=== PATIENT | male | born 1945 | race Caucasian/White ===

== ENCOUNTER 2019-12-21 07:40 | Emergency (ER) | payer OTHER, SELFPAY ==
[2019-12-21 07:55] VITALS: BP 176/80; PULSE 73; RESP 14; TEMP 36.4; O2SAT 98; BMI 24.3
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
[2019-12-21] MEDS: cephALEXin 500 MG CAPSULE PO (09:23)
== END 2019-12-21 09:52 | disposition home or self-care (01) ==
PROVIDERS: Emergency Provider Emergency Medicine
DX: L01.00 Impetigo, unspecified (principal); L03.116 Cellulitis of left lower limb; L03.115 Cellulitis of right lower limb; S80.812A Abrasion, left lower leg, initial encounter; S80.811A Abrasion, right lower leg, initial encounter; I10 Essential (primary) hypertension; Z79.899 Other long term (current) drug therapy; Z23 Encounter for immunization; Y33.XXXA Other specified events, undetermined intent, initial encounter; Y93.55 Activity, bike riding; Y92.410 Unspecified street and highway as the place of occurrence of the external cause; Y99.9 Unspecified external cause status
CPT/HCPCS: 90471; 90715; 99282; 99284

== ENCOUNTER 2020-08-21 11:16 | Emergency (ER) | payer MEDICARE, SELFPAY ==
--- NOTE | ~2020-08-21 | XR_ITS ---
EXAMINATION: XR KNEE, RIGHT CLINICAL INFORMATION: Pain swelling COMPARISON: None TECHNIQUE: Four views of the right knee. FINDINGS: No effusion. Mild soft tissue prominence in the anterior subcutaneous soft tissues compatible edema. Minimal osteoarthritis manifested by small marginal osteophytes about the patellofemoral compartment as well as the medial lateral compartments involving the tibial spines. No joint space narrowing. Small area of ossification adjacent to the medial femoral condyle compatible with old medial collateral ligament tear. Arterial calcification XR/XR knee RT 4V IMPRESSION: Mild degenerative changes. Suspect soft tissue swelling tissues perhaps involving the prepatellar bursa
[2020-08-21 11:28] VITALS: BP 101/58; PULSE 56; RESP 18; TEMP 36.1; O2SAT 96; BMI 28.1
[2020-08-21 12:55] LABS: MANUAL DIFF FLAG NO
[2020-08-21 12:58] LABS: Basophils Absolute Auto 0.1 X10*3/uL (0.0-0.2); Basophils Percent Auto 0.5 % (0-2); Eosinophils Absolute Auto 0.1 X10*3/uL (0.0-0.4); Eosinophils Percent Auto 0.9 % (0-4); Hematocrit 41.6 % (42-52); Hemoglobin 14.1 g/dl (14.0-18.0); Imm Gran Abs Auto 0.05 X10*3/uL (0.00-0.03); Imm Gran Pct Auto 0.4 % (0.0-0.4); Lymphocytes Absolute Auto 1.1 X10*3/uL (1.2-4.9); Lymphocytes Percent Auto 8.9 % (20-40); Mean Corpuscular HGB Conc 33.9 g/dl (31.0-36.0); Mean Corpuscular Volume 91.4 fL (80-98); Mean Platelet Volume 10.6 fL (9.4-12.4); Monocytes Percent Auto 7.9 % (2-11); Neutrophils Percent Auto 81.4 % (45-73); Platelet Count 218 X10*3/uL (160-400); Red Blood Count 4.55 X10*6/uL (4.60-5.80); Red Cell Distribution Width 12.4 % (11.0-16.0); White Blood Count 12.3 X10*3/uL (4.8-10.8)
[2020-08-21 13:13] LABS: Lithium 1.81 mmol/L (0.60-1.20)
[2020-08-21 13:19] LABS: Alanine Aminotransferase 32 U/L (0-40); Albumin Level 4.5 g/dL (3.5-5.0); Alkaline Phosphatase 122 U/L (39-117); Anion Gap 12 (12-20); Aspartate Amino Transferase 27 U/L (5-37); Bilirubin Total 1.1 mg/dL (0.0-1.0); Blood Urea Nitrogen 37 mg/dL (9-16); C Reactive Protein 4.76 mg/dL (< or = 0.50); Calcium 10.3 mg/dL (8.4-10.2); Carbon Dioxide 22 mmol/L (22-29); Chloride 108 mmol/L (96-108); Creatinine Clr Calc Pharmacy 37.9; Estimated Glomerular Filt Rate 37; Glucose Random 124 mg/dL (60-115); Magnesium 2.4 mg/dL (1.6-2.6); Potassium 4.2 mmol/L (3.3-5.1); Sodium 138 mmol/L (135-145); Total Protein 7.4 g/dL (6.5-8.0)
[2020-08-21 13:39] LABS: TSH reflex Free T4 3.95 uIU/mL (0.32-4.0)
[2020-08-21 13:57] LABS: Erythrocyte Sedimentation Rate 12 MM/HR (0-15)
--- NOTE | 2020-08-21 14:11 | PC.NURSE ---
PT WITNESSED BY THIS RN AMBULATING OUT OF ED WITH EVEN STEADY GAIT, PT DID NOT INFORM STAFF HE WAS LEAVING, NOT PRESENT IN FRONT OF ED WHEN THIS RN WENT TO ADVISE PATIENT MORE CARE WAS ORDERED BY PROVIDER.
--- NOTE | 2020-08-21 14:13 | ED.EXTPRO ---
HPI - Extremity Problem General Chief complaint: Extremity Injury, Lower Stated complaint: knee pain Time Seen by Provider: 08/21/20 12:10 Source: patient Mode of arrival: ambulatory Limitations: no limitations History of Present Illness HPI Narrative: 75-year-old male who is currently residing at [facility] with a past medical history of skin cancer of the face and bipolar 1 disorder presenting to the ED with complaints of atraumatic right knee pain /swelling for the past 3 weeks worse today. He denies any fevers, chills, history of IV drug use, history of MRSA, any injury or falls, history of gout, recent surgery or procedure, recent travel or immobilization or illness, history of DVT or PE or any other symptoms complaints or concerns at this time. Patient had an outpatient lab slip for a complete metabolic panel, CBC, TSH level in a lithium level therefore explained to the patient due to his erythema/swelling and pain to the right knee I was going to obtain blood work therefore I would obtain the blood work that he needed and he agreed with this. MD Complaint: extremity pain and extremity swelling Onset (ago): week(s) ( 3 weeks) Pain Consistency: constant Location: right and knee Quality: aching Radiation: none Relieving factors: rest Exacerbating factors: walking Associated symptoms: denies other symptoms Related Data Previous Rx's Medication Instructions Recorded cephalexin [Keflex] 500 mg PO Q6H 10 Days #40 cap 12/21/19 doxycycline monohydrate 100 mg PO BID 10 Days #20 cap 12/21/19 mupirocin 1 applic TOPICAL TID #22 g 12/21/19 cephalexin 500 mg PO BID 10 Days #20 cap 08/21/20 doxycycline monohydrate 100 mg PO BID 10 Days #20 cap 08/21/20 Allergies Allergy/AdvReac Type Severity Reaction Status Date / Time No Known Allergies Allergy Unknown Unverified 11/03/19 15:08 Review of Systems Review of Systems: Constitutional : No changes in activity, No lethargy, No recent prior head injury, No agitation, No increased fussiness ENT/Mouth : No Ear Pain, No Nasal discharge/drainage Eyes: No Eye Pain, No Swelling, No Redness, No Foreign Body, No Vision Changes Cardiovascular : No Chest Pain, No SOB Respiratory : No Cough Gastrointestinal : No Nausea, No Vomiting, No abdominal Pain Genitourinary : No Dysuria, No Urinary Frequency, No Urinary Incontinence, No Urgency, No Flank Pain Musculoskeletal : + joint pain, No neck stiffness, No back pain/injury Skin : No lacerations Neuro : No unsteady gait, No Paresthesias, No Loss of Consciousness, No altered mental status, No Headache Yes all other systems are reviewed and are negative [facility] Past Medical History Attestation statement: The following information was validated with the patient. Medical History Bipolar 1 disorder Skin cancer of face Social History Social History Advance Directives: No Advance Directives Information Provided: No Physical Exam Vital Signs: Vital Signs: Last Vital Signs Temp 97 F 08/21/20 11:28 Pulse 56 08/21/20 11:28 Resp 18 08/21/20 11:28 BP 101/58 L 08/21/20 11:28 Pulse Ox 96 08/21/20 11:28 Body Mass Index 28.1 vital signs have been reviewed as normal and appeared to be correct. Blood pressure normal. Heart rate normal. Respiration rate normal. Temperature normal. Oxygen saturation normal. Appearance: Alert. Oriented X3. No acute distress. Head: Normal external exam. Normocephalic. Atraumatic. Eyes: PERRLA. EOMI. Conjunctiva and sclera normal. Eyelids normal. ENT: Pharynx normal. Uvula midline. Moist mucous membranes. No trismus noted. No drooling noted. No muffled voice noted. Neck: Normal inspection. Neck supple. FROM. No adenopathy. Thyroid Normal. No meningeal signs. No neck mass noted. CVS: Normal heart rate and rhythm. Heart sound normal. Pulses normal throughout. No murmurs/rales/gallops. Respiratory: No respiratory distress. Painless inspiration. Breath sounds normal. No wheezes/rales/rhonchi noted. Chest nontender. No accessory muscle usage noted or decreased air movement noted. Abdomen: Soft and nontender. Bowel sounds normal in all 4 quadrants. No distention noted. No organomegaly noted. No visible injury noted. Back: Full range of motion noted. No rashes/lesion/induration/fluctuance or signs of infection noted. Skin: Skin warm and dry. Normal skin color. Normal skin turgor. No rashes/lesions/lacerations noted. Extremities: Patient mild soft tissue swelling to right knee at the patellar aspect with erythema/ warmth to touch although patient has full range of motion of the right knee not consistent with septic joint. No ligamentous laxity noted to the right knee. Otherwise No lower extremity edema. no calf tenderness is noted. Otherwise Extremities exhibit normal range of motion and nontender. Neuro: Oriented X 3. No motor deficit. No sensory deficit. Reflexes normal. Normal steady gait. No focal neuro deficits noted. Vascular: + radial pulses/+ 2 distal pedal pulses/+2 dorsalis pedis b/l. Normal cap refill. No cyanosis noted to upper extremity nails and lower extremity toes nails. Course Course Course Narrative: 75-year-old male presenting to the ED with atraumatic right knee pain /swelling /redness for the past 3 weeks worse today. Denies history of IV drug use and no history of DVT or PE. On exam patient appears to have a cellulitic infection not consistent with septic joint as patient has full range of motion. X-ray reveal soft tissue swelling and bursitis otherwise no other acute processes. Therefore I explained to the patient due to his erythema to the right knee I would obtain blood work and due to he already had an outpatient slip for blood work I offered to do a CBC/CMP/ TSH level and lithium. Labs were obtained although when labs return it [place] [address]. BUN creatinine 37/1.80. Random glucose 124. Calcium 10.3. Total bilirubin 1.1. Alkaline phosphate 122. CRP was 4.76. lithium 1.80. Lyme titer is pending. Otherwise all other labs are within normal limits including TSH level. Therefore I ordered 2 L of IV fluids and anticipated to admit the patient although when I went back into the room to explain this to the patient he was no longer in the room we waited approximately 15-30 minutes and we cannot find him and the nurse cannot find him I tried to call the number on the outpatient slip that he provided at and I unable to get in contact with the provider to order the outpatient labs. If patient returns patient should receive 2 L of IV fluids and should be admitted for SUMANTH with elevated lithium level And cellulitis of the right knee. MDM - Extremity (Nontraumatic) Medical Records Attestation: I reviewed the patient's medical records. Lab Data Attestation: I reviewed the patient's lab results. Result diagrams: 08/21/20 12:49 08/21/20 12:49 Labs: Lab Results 08/21/20 08/21/20 08/21/20 Range/Units 12:48 12:49 12:49 WBC 12.3 H (4.8-10.8) X10*3/uL RBC 4.55 L (4.60-5.80) X10*6/uL Hgb 14.1 (14.0-18.0) g/dl Hct 41.6 L (42-52) % MCV 91.4 (80-98) fL MCH 31.0 (27.0-33.0) pg MCHC 33.9 (31.0-36.0) g/dl RDW 12.4 (11.0-16.0) % Plt Count 218 (160-400) X10*3/uL MPV 10.6 (9.4-12.4) fL Immature Gran % (Auto) 0.4 (0.0-0.4) % Neut % (Auto) 81.4 H (45-73) % Lymph % (Auto) 8.9 L (20-40) % [place] % (Auto) 7.9 (2-11) % Eos % (Auto) 0.9 (0-4) % Baso % (Auto) 0.5 (0-2) % Lymph # (Auto) 1.1 L (1.2-4.9) X10*3/uL [place] # (Auto) 1.0 (0.1-1.2) X10*3/uL Eos # (Auto) 0.1 (0.0-0.4) X10*3/uL Baso # (Auto) 0.1 (0.0-0.2) X10*3/uL Abs Immat Gran (auto) 0.05 H (0.00-0.03) X10*3/uL Absolute Neuts (auto) 10.0 H (2.0-8.3) X10*3/uL Absolute Nucleated RBC 0.000 (0.0-0.012) X10*3/uL Nucleated RBC % (auto) 0.0 (0.0-0.2) /100WBC ESR 12 (0-15) MM/HR Sodium (135-145) mmol/L Potassium (3.3-5.1) mmol/L Chloride (96-108) mmol/L Carbon Dioxide (22-29) mmol/L Anion Gap (12-20) BUN (9-16) mg/dL Creatinine (0.5-1.4) mg/dL Estim Creat Clear Calc Estimated GFR Random Glucose (60-115) mg/dL Calcium (8.4-10.2) mg/dL Magnesium (1.6-2.6) mg/dL Total Bilirubin (0.0-1.0) mg/dL AST (5-37) U/L ALT (0-40) U/L Alkaline Phosphatase (39-117) U/L C-Reactive Protein (< or = 0.50) mg/dL Total Protein (6.5-8.0) g/dL Albumin (3.5-5.0) g/dL TSH (0.32-4.0) uIU/mL [place] 1.81 H* (0.60-1.20) mmol/L 08/21/20 08/21/20 Range/Units 12:49 12:49 WBC (4.8-10.8) X10*3/uL RBC (4.60-5.80) X10*6/uL Hgb (14.0-18.0) g/dl Hct (42-52) % MCV (80-98) fL MCH (27.0-33.0) pg MCHC (31.0-36.0) g/dl RDW (11.0-16.0) % Plt Count (160-400) X10*3/uL MPV (9.4-12.4) fL Immature Gran % (Auto) (0.0-0.4) % Neut % (Auto) (45-73) % Lymph % (Auto) (20-40) % [place] % (Auto) (2-11) % Eos % (Auto) (0-4) % Baso % (Auto) (0-2) % Lymph # (Auto) (1.2-4.9) X10*3/uL [place] # (Auto) (0.1-1.2) X10*3/uL Eos # (Auto) (0.0-0.4) X10*3/uL Baso # (Auto) (0.0-0.2) X10*3/uL Abs Immat Gran (auto) (0.00-0.03) X10*3/uL Absolute Neuts (auto) (2.0-8.3) X10*3/uL Absolute Nucleated RBC (0.0-0.012) X10*3/uL Nucleated RBC % (auto) (0.0-0.2) /100WBC ESR (0-15) MM/HR Sodium 138 (135-145) mmol/L Potassium 4.2 (3.3-5.1) mmol/L Chloride 108 (96-108) mmol/L Carbon Dioxide 22 (22-29) mmol/L Anion Gap 12 (12-20) BUN 37 H (9-16) mg/dL Creatinine 1.80 H (0.5-1.4) mg/dL Estim Creat Clear Calc 37.9 Estimated GFR 37 Random Glucose 124 H (60-115) mg/dL Calcium 10.3 H (8.4-10.2) mg/dL Magnesium 2.4 (1.6-2.6) mg/dL Total Bilirubin 1.1 H (0.0-1.0) mg/dL AST 27 (5-37) U/L ALT 32 (0-40) U/L Alkaline Phosphatase 122 H (39-117) U/L C-Reactive Protein 4.76 H (< or = 0.50) mg/dL Total Protein 7.4 (6.5-8.0) g/dL Albumin 4.5 (3.5-5.0) g/dL TSH 3.95 (0.32-4.0) uIU/mL [place] (0.60-1.20) mmol/L Imaging Data Right knee x-ray: Attestation: I personally reviewed and interpreted this imaging study as follows: Radiologist's impression: FINDINGS: No effusion. Mild soft tissue prominence in the anterior subcutaneous soft tissues compatible edema. Minimal osteoarthritis manifested by small marginal osteophytes about the patellofemoral compartment as well as the medial lateral compartments involving the tibial spines. No joint space narrowing. Small area of ossification adjacent to the medial femoral condyle compatible with old medial collateral ligament tear. Arterial calcification XR/XR knee RT 4V IMPRESSION: Mild degenerative changes. Suspect soft tissue swelling tissues perhaps involving the prepatellar bursa Discharge Plan Discharge Clinical Impression: Cellulitis of knee, right, Elevated lithium level, SUMANTH (acute kidney injury) Patient Disposition: Elopement Prescriptions: New doxycycline monohydrate 100 mg capsule 100 mg PO BID 10 Days Qty: 20 RF: 0 cephalexin 500 mg capsule 500 mg PO BID 10 Days Qty: 20 RF: 0 No Action doxycycline monohydrate 100 mg capsule 100 mg PO BID 10 Days Qty: 20 RF: 0 cephalexin [Keflex] 500 mg capsule 500 mg PO Q6H 10 Days Qty: 40 RF: 0 mupirocin 2 % ointment 1 applic topical TID Qty: 22 RF: 0 Referrals: Physician,Unknown [Primary Care Provider] - 2 days (your pcp) Discharge Date/Time: 08/21/20 14:12
[2020-08-22 17:01] LABS: Lyme Abs Screen <0.90 index
== END 2020-08-21 14:12 | disposition left against medical advice (07) ==
PROVIDERS: Physician Assistant Medical; Emergency Provider Emergency Medicine
DX: L03.115 Cellulitis of right lower limb (principal); R78.89 Finding of other specified substances, not normally found in blood; N17.9 Acute kidney failure, unspecified; M25.561 Pain in right knee; R22.41 Localized swelling, mass and lump, right lower limb
CPT/HCPCS: 36415; 73564; 80053; 80178; 83735; 84443; 85025; 85652; 86140; 86617; 86618; 96360; 99282; 99283; 99284

== ENCOUNTER 2020-08-23 13:50 | Inpatient (IN) | payer MEDICARE, SELFPAY ==
[2020-08-23] VITALS (8 sets, daily range): BP systolic 116–152; BP diastolic 62–80; PULSE 56–68; RESP 13–18; TEMP 36.2–37; O2SAT 98; BMI 28.1
--- NOTE | 2020-08-23 16:24 | ED_ITS ---
HPI - General Adult General Chief complaint: General Medical Stated complaint: General Medical Time Seen by Provider: 08/23/20 15:25 Source: patient Mode of arrival: ambulatory Limitations: no limitations History of Present Illness HPI narrative: 75-year-old male who presents emergency department for evaluation right knee pain. He states he has had right knee pain for approximately 4 days, the pain came on gradually, he states that his knee was swollen and red and it has improved. The patient does have a history of bipolar disorder and is on lithium. He was seen here yesterday in the emergency department with similar complaint, had blood work which revealed acute kidney injury and elevated lithium level. The provider that treated in yesterday tried to contact his family and the facility that he was at to get him to come back to emergency department. The patient was sent to emergency department today from his hospice facility for evaluation. The patient denied fever, chills, chest pain, shortness of breath and fatigue. He states that he is having pain in his right knee. He describes the pain as a constant, dull ache which is moderate intensity is worse with movement and with walking. He states he did take his lithium this morning. Related Data Home Medications Medication Instructions Recorded Confirmed ascorbic acid (vitamin C) [Vitamin 08/23/20 C] aspirin 81 mg PO DAILY 08/23/20 08/23/20 ferrous sulfate 325 mg PO DAILY 08/23/20 08/23/20 lisinopril-hydrochlorothiazide 1 tab PO DAILY 08/23/20 08/23/20 lithium carbonate 1 cap PO BEDTIME 08/23/20 08/23/20 lithium carbonate 1 tab PO BEDTIME 08/23/20 08/23/20 magnesium hydroxide [Milk of 08/23/20 08/23/20 Magnesia] multivitamin,qy-[id number]-Ls-FA-min tab 08/23/20 [Multivitamin And Mineral] olanzapine 1 tab PO BEDTIME 08/23/20 08/23/20 Previous Rx's Medication Instructions Recorded cephalexin [Keflex] 500 mg PO Q6H 10 Days #40 cap 12/21/19 doxycycline monohydrate 100 mg PO BID 10 Days #20 cap 12/21/19 mupirocin 1 applic TOPICAL TID #22 g 12/21/19 cephalexin 500 mg PO BID 10 Days #20 cap 08/21/20 doxycycline monohydrate 100 mg PO BID 10 Days #20 cap 08/21/20 Allergies Allergy/AdvReac Type Severity Reaction Status Date / Time No Known Allergies Allergy Unknown Unverified 11/03/19 15:08 Review of Systems Review of Systems: Yes Unobtainable due to mental status [facility] Past Medical History [facility] Narrative: social history: The patient currently is living in a hospice. He denies tobacco, alcohol and drug use. Medical History Bipolar 1 disorder Skin cancer of face Social History Social History Alcohol intake: never Patient Tobacco Use Status: Never used Tobacco Use of substances other than those prescribed or required for medical reasons: No Advance Directives: No Advance Directives Information Provided: Yes Physical Exam Vital Signs: Vital Signs: Last Vital Signs Temp 98.5 F 08/23/20 18:57 Pulse 66 08/23/20 18:57 Resp 18 08/23/20 18:57 BP 139/65 08/23/20 18:57 Pulse Ox 98 08/23/20 18:57 Body Mass Index 28.1 Const: General: cooperative and healthy appearing Orientation/consciousness: oriented to person and oriented to place Limitations: no limitations HENMT: Head: Yes normal to inspection, Yes normocephalic and Yes atraumatic Ears: external ears normal General nose exam: Normal external nose present Face and sinus: Yes normal facial exam Mouth: Normal oral and palatal mucosa present Throat: Yes posterior oropharynx normal Eyes: Periorbital: periorbital findings normal Eyelids: Yes eyelids normal Conjunctivae: conjunctivae normal Sclerae: sclerae normal Corneas: corneas normal Pupils: Equal, round and reactive pupils present Direct Ophthalmoscopy: normal light reflex Neck: Neck: Yes full ROM, Yes no lymphadenopathy, Yes no meningeal signs, Yes trachea midline and Yes supple Chest: Chest palpation & inspection: normal inspection of the chest and normal palpation of entire chest wall Resp: Effort & Inspection: normal respiratory effort and able to speak in complete sentences Auscultation: clear to auscultation bilaterally Cardio: Rate: regular rate Rhythm: regular rhythm Heart sounds: S1 normal heart sound present, S2 normal heart sound present and no murmurs GI: Inspection: Yes normal to inspection Palpation (GI): Soft to palpation, nontender, no guarding, not rigid and No hepatosplenomegaly present : General: Yes no CVA tenderness Back/Spine/Pelvis: Back: no CVA tenderness Cervical Spine: normal cervical lordosis Thoracic/Lumbar Spine: thoracic and lumbar spine normal to inspection Skin: Lesions: no lesions Rashes: no rashes Wounds: no wounds Neuro: General: oriented to person, oriented to place and no meningeal signs Cranial nerves: Yes CN's II-XII intact bilaterally and Yes Equal, round and reactive pupils present Cognition (Neuro): normal cognition Motor exam (neuro): 5/5 motor strength present throughout Extrem: Other: The patient's right knee is slightly erythematous and warm to the touch compared to the left, there is no joint effusion, the patient has full range of motion. Compared to images from yesterday, the knee appears to be improved with less erythema, and less soft tissue swelling General: Yes full ROM Psych: Appearance: well kempt Mental Status: mental status grossly normal Speech and movement: Normal speech and movement present Affect: normal affect Attitude: cooperative Thought process: Normal thought process present Thought content: Normal thought content present Course Course Course Narrative: 75-year-old male with history of bipolar disorder who presents emergency department for evaluation of right knee pain x4 days, he was evaluated in the emergency department yesterday and was found to have a high lithium level with an elevated creatinine and he left the emergency department prior to disposition. He was sent back to the emergency department today for re-evaluation. The patient's right knee is erythematous and there is soft tissue swelling with no obvious joint effusion, compared to the images from yesterday, the erythema and soft tissue swelling seems to improved. I will repeat a laboratory evaluation on this patient to include CBC, CMP, PT/INR PTT, CK and lithium level. He was ordered to get normal saline IV x3 L. 180: The patient's laboratory evaluation did reveal an increase in his BUN and creatinine to 53 and 2.31 compared to 37 and 1.8 yesterday. [place] level was also higher at 2.05 compared to 1.8 yesterday. I did discuss the patient's presentation with the covering woodworking machine operator, Dr. Vo who recommended the patient be admitted, hydrated with isotonic saline and repeat labs in the [facility]. I will discuss the patient's presentation with the covering hospitalist. 1921: I did discuss the patient's presentation with the covering hospitalist, who accepted the patient on the hospitalist service,. I will obtain an EKG and the patient will be [place] [facility] Medical Decision Making Lab Data Result diagrams: 08/23/20 16:30 08/23/20 16:30 Labs: Lab Results 08/23/20 08/23/20 08/23/20 Range/Units 16:30 16:30 16:30 WBC 12.1 H (4.8-10.8) X10*3/uL RBC 4.36 L (4.60-5.80) X10*6/uL Hgb 13.7 L (14.0-18.0) g/dl Hct 41.1 L (42-52) % MCV 94.3 (80-98) fL MCH 31.4 (27.0-33.0) pg MCHC 33.3 (31.0-36.0) g/dl RDW 12.6 (11.0-16.0) % Plt Count 227 (160-400) X10*3/uL MPV 10.9 (9.4-12.4) fL Immature Gran % (Auto) 0.5 H (0.0-0.4) % Neut % (Auto) 84.6 H (45-73) % Lymph % (Auto) 6.5 L (20-40) % [place] % (Auto) 6.8 (2-11) % Eos % (Auto) 1.2 (0-4) % Baso % (Auto) 0.4 (0-2) % Lymph # (Auto) 0.8 L (1.2-4.9) X10*3/uL [place] # (Auto) 0.8 (0.1-1.2) X10*3/uL Eos # (Auto) 0.2 (0.0-0.4) X10*3/uL Baso # (Auto) 0.1 (0.0-0.2) X10*3/uL Abs Immat Gran (auto) 0.06 H (0.00-0.03) X10*3/uL Absolute Neuts (auto) 10.2 H (2.0-8.3) X10*3/uL Absolute Nucleated RBC 0.000 (0.0-0.012) X10*3/uL Nucleated RBC % (auto) 0.0 (0.0-0.2) /100WBC PT 12.6 (9.9-13.0) SEC INR 1.1 (0.9-1.1) APTT 34.2 (24.1-38.0) SEC Sodium 138 (135-145) mmol/L Potassium 4.3 (3.3-5.1) mmol/L Chloride 107 (96-108) mmol/L Carbon Dioxide 24 (22-29) mmol/L Anion Gap 11 L (12-20) BUN 53 H (9-16) mg/dL Creatinine 2.31 H (0.5-1.4) mg/dL Estim Creat Clear Calc 29.6 Estimated GFR 28 Random Glucose 97 (60-115) mg/dL Lactic Acid (0.5-2.0) mmol/L Calcium 10.0 (8.4-10.2) mg/dL Total Bilirubin 0.4 (0.0-1.0) mg/dL AST 39 H D (5-37) U/L ALT 48 H (0-40) U/L Alkaline Phosphatase 128 H (39-117) U/L Total Creatine Kinase (38-174) U/L Total Protein 7.3 (6.5-8.0) g/dL Albumin 4.4 (3.5-5.0) g/dL Lipase 62 (8-78) U/L Urine Color Urine Appearance Urine pH (5.0-8.0) Ur Specific [place] (1.005-1.025) Urine Protein (NEG-TRACE) MG/DL Urine Glucose (UA) (NEG) MG/DL Urine Ketones (NEG) MG/DL Urine Blood (NEG) Urine Nitrite (NEG) Ur Leukocyte Esterase (NEG) [place] (0.60-1.20) mmol/L 08/23/20 08/23/20 08/23/20 Range/Units 16:30 16:30 16:30 WBC (4.8-10.8) X10*3/uL RBC (4.60-5.80) X10*6/uL Hgb (14.0-18.0) g/dl Hct (42-52) % MCV (80-98) fL MCH (27.0-33.0) pg MCHC (31.0-36.0) g/dl RDW (11.0-16.0) % Plt Count (160-400) X10*3/uL MPV (9.4-12.4) fL Immature Gran % (Auto) (0.0-0.4) % Neut % (Auto) (45-73) % Lymph % (Auto) (20-40) % [place] % (Auto) (2-11) % Eos % (Auto) (0-4) % Baso % (Auto) (0-2) % Lymph # (Auto) (1.2-4.9) X10*3/uL [place] # (Auto) (0.1-1.2) X10*3/uL Eos # (Auto) (0.0-0.4) X10*3/uL Baso # (Auto) (0.0-0.2) X10*3/uL Abs Immat Gran (auto) (0.00-0.03) X10*3/uL Absolute Neuts (auto) (2.0-8.3) X10*3/uL Absolute Nucleated RBC (0.0-0.012) X10*3/uL Nucleated RBC % (auto) (0.0-0.2) /100WBC PT (9.9-13.0) SEC INR (0.9-1.1) APTT (24.1-38.0) SEC Sodium (135-145) mmol/L Potassium (3.3-5.1) mmol/L Chloride (96-108) mmol/L Carbon Dioxide (22-29) mmol/L Anion Gap (12-20) BUN (9-16) mg/dL Creatinine (0.5-1.4) mg/dL Estim Creat Clear Calc Estimated GFR Random Glucose (60-115) mg/dL Lactic Acid 0.6 (0.5-2.0) mmol/L Calcium (8.4-10.2) mg/dL Total Bilirubin (0.0-1.0) mg/dL AST (5-37) U/L ALT (0-40) U/L Alkaline Phosphatase (39-117) U/L Total Creatine Kinase 143 (38-174) U/L Total Protein (6.5-8.0) g/dL Albumin (3.5-5.0) g/dL Lipase (8-78) U/L Urine Color Urine Appearance Urine pH (5.0-8.0) Ur Specific [place] (1.005-1.025) Urine Protein (NEG-TRACE) MG/DL Urine Glucose (UA) (NEG) MG/DL Urine Ketones (NEG) MG/DL Urine Blood (NEG) Urine Nitrite (NEG) Ur Leukocyte Esterase (NEG) [place] 2.05 H* (0.60-1.20) mmol/L 08/23/20 Range/Units 18:27 WBC (4.8-10.8) X10*3/uL RBC (4.60-5.80) X10*6/uL Hgb (14.0-18.0) g/dl Hct (42-52) % MCV (80-98) fL MCH (27.0-33.0) pg MCHC (31.0-36.0) g/dl RDW (11.0-16.0) % Plt Count (160-400) X10*3/uL MPV (9.4-12.4) fL Immature Gran % (Auto) (0.0-0.4) % Neut % (Auto) (45-73) % Lymph % (Auto) (20-40) % [place] % (Auto) (2-11) % Eos % (Auto) (0-4) % Baso % (Auto) (0-2) % Lymph # (Auto) (1.2-4.9) X10*3/uL [place] # (Auto) (0.1-1.2) X10*3/uL Eos # (Auto) (0.0-0.4) X10*3/uL Baso # (Auto) (0.0-0.2) X10*3/uL Abs Immat Gran (auto) (0.00-0.03) X10*3/uL Absolute Neuts (auto) (2.0-8.3) X10*3/uL Absolute Nucleated RBC (0.0-0.012) X10*3/uL Nucleated RBC % (auto) (0.0-0.2) /100WBC PT (9.9-13.0) SEC INR (0.9-1.1) APTT (24.1-38.0) SEC Sodium (135-145) mmol/L Potassium (3.3-5.1) mmol/L Chloride (96-108) mmol/L Carbon Dioxide (22-29) mmol/L Anion Gap (12-20) BUN (9-16) mg/dL Creatinine (0.5-1.4) mg/dL Estim Creat Clear Calc Estimated GFR Random Glucose (60-115) mg/dL Lactic Acid (0.5-2.0) mmol/L Calcium (8.4-10.2) mg/dL Total Bilirubin (0.0-1.0) mg/dL AST (5-37) U/L ALT (0-40) U/L Alkaline Phosphatase (39-117) U/L Total Creatine Kinase (38-174) U/L Total Protein (6.5-8.0) g/dL Albumin (3.5-5.0) g/dL Lipase (8-78) U/L Urine Color YELLOW Urine Appearance CLEAR Urine pH 6.0 (5.0-8.0) Ur Specific [place] 1.020 (1.005-1.025) Urine Protein NEG (NEG-TRACE) MG/DL Urine Glucose (UA) NEG (NEG) MG/DL Urine Ketones 5 (NEG) MG/DL Urine Blood NEG (NEG) Urine Nitrite NEG (NEG) Ur Leukocyte Esterase NEG (NEG) [place] (0.60-1.20) mmol/L Discharge Plan Discharge Clinical Impression: Acute kidney injury [place] toxicity Qualifiers: Encounter type: initial encounter Injury intent: accidental or unintentional Qualified Code(s): T56.891A - Toxic effect of other metals, accidental (unintentional), initial encounter Patient Disposition: Admitted As Inpatient
[2020-08-23] MEDS: 0.9 % Sodium Chloride 1,000 ML 999 ML IV ×3 (16:39→19:12)
[2020-08-23] MEDS: Acetaminophen 325 MG TABLET 975 MG PO (16:43)
[2020-08-23 16:45] LABS: MANUAL DIFF FLAG NO
[2020-08-23 16:48] LABS: Basophils Absolute Auto 0.1 X10*3/uL (0.0-0.2); Basophils Percent Auto 0.4 % (0-2); Eosinophils Absolute Auto 0.2 X10*3/uL (0.0-0.4); Eosinophils Percent Auto 1.2 % (0-4); Hematocrit 41.1 % (42-52); Hemoglobin 13.7 g/dl (14.0-18.0); Imm Gran Abs Auto 0.06 X10*3/uL (0.00-0.03); Imm Gran Pct Auto 0.5 % (0.0-0.4); Lymphocytes Absolute Auto 0.8 X10*3/uL (1.2-4.9); Lymphocytes Percent Auto 6.5 % (20-40); Mean Corpuscular HGB Conc 33.3 g/dl (31.0-36.0); Mean Corpuscular Hemoglobin 31.4 pg (27.0-33.0); Mean Corpuscular Volume 94.3 fL (80-98); Mean Platelet Volume 10.9 fL (9.4-12.4); Monocytes Absolute Auto 0.8 X10*3/uL (0.1-1.2); Monocytes Percent Auto 6.8 % (2-11); Neutrophils Absolute Auto 10.2 X10*3/uL (2.0-8.3); Neutrophils Percent Auto 84.6 % (45-73); Platelet Count 227 X10*3/uL (160-400); Red Blood Count 4.36 X10*6/uL (4.60-5.80); Red Cell Distribution Width 12.6 % (11.0-16.0); White Blood Count 12.1 X10*3/uL (4.8-10.8)
[2020-08-23 16:54] LABS: INTERNATIONAL NORM RATIO 1.1 (0.9-1.1); Prothrombin Time 12.6 SEC (9.9-13.0)
[2020-08-23 16:57] LABS: Partial Thromboplastin Time 34.2 SEC (24.1-38.0)
--- NOTE | 2020-08-23 17:00 | PC.NURSE ---
Patient given a sandwich and gingerale per his request. Pt is alert and in no acute distress
[2020-08-23 17:15] LABS: Lactic Acid 0.6 mmol/L (0.5-2.0)
[2020-08-23 17:19] LABS: Alanine Aminotransferase 48 U/L (0-40); Albumin Level 4.4 g/dL (3.5-5.0); Alkaline Phosphatase 128 U/L (39-117); Anion Gap 11 (12-20); Aspartate Amino Transferase 39 U/L (5-37); Bilirubin Total 0.4 mg/dL (0.0-1.0); Blood Urea Nitrogen 53 mg/dL (9-16); Carbon Dioxide 24 mmol/L (22-29); Chloride 107 mmol/L (96-108); Creatinine Clr Calc Pharmacy 29.6; Estimated Glomerular Filt Rate 28; Glucose Random 97 mg/dL (60-115); Lipase 62 U/L (8-78); Potassium 4.3 mmol/L (3.3-5.1); Sodium 138 mmol/L (135-145); Total Protein 7.3 g/dL (6.5-8.0)
[2020-08-23 17:26] LABS: Lithium 2.05 mmol/L (0.60-1.20)
[2020-08-23 18:34] LABS: Glucose Urine UA NEG (NEG); Leukocyte Esterase Urine NEG (NEG); Nitrite Urine NEG (NEG); Urine Blood NEG (NEG); Urine Ketones 5 MG/DL (NEG); Urine Protein NEG (NEG-TRACE)
[2020-08-23 18:38] LABS: Appearance Urine CLEAR; Color Urine YELLOW
--- NOTE | 2020-08-23 19:07 | PC.NURSE ---
Pt resting on stretcher in NAD, breathing with ease on RA. Pt aaox3, disoriented to situation and reports he is at the hospital for R knee pain. When made aware he is here for elevated lithium levels, he agrees. Pt calm and cooperative with pt care. Pt with mild-moderate tremor which he reports that's from the lithium. I used to not have it, but now it's my normal. Pt IV fluids infusing slowly as pt needs frequent reminders to keep L arm straight as IV access is established in AC. 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 Provider to be made aware. VSS. Stretcher is in low locked position, rails raised, call rodriguez and personal belongings within reach.
--- NOTE | 2020-08-23 19:12 | PC.NURSE ---
Upon initial assessment, this RN appreciates mildly slurred speech but neuros otherwise intact and WNL.
--- NOTE | 2020-08-23 19:20 | ECG_ITS ---
Test Reason : KNEE PAIN Blood Pressure : / mmHG Vent. Rate : 065 BPM Atrial Rate : 065 BPM P-R Int : 316 ms QRS Dur : 106 ms QT Int : 428 ms P-R-T Axes : 000 -02 161 degrees QTc Int : 445 ms Sinus rhythm with 1st degree A-V block Left ventricular hypertrophy with repolarization abnormality Abnormal ECG When compared with ECG of 02-AUG-2012 13:42, T wave inversion less evident in Anterior leads Referred By: Casey Macdonald Electronically Signed By:FANG LOYA
--- NOTE | 2020-08-23 19:21 | PC.NURSE ---
Dr Lugo made aware of possible junctional rhythm, to order EKG
--- NOTE | 2020-08-23 20:24 | PHA.MEDREC ---
Pharmacy Consult ? Medication Reconciliation Pharmacy has completed the medication reconciliation.
[2020-08-23 20:43] LABS: COVID-19 Test Negative (Negative)
--- NOTE | 2020-08-23 20:52 | PM.IMHP ---
History of Present Illness Date of Service: 08/23/20 Chief Complaint: right knee pain 75-year-old male with a past medical history of hypertension, bipolar disorder on lithium presented to the hospital with a chief complaint of right knee pain. Patient mentioned that he presented to the hospital yesterday, had an x-ray with no acute findings, subsequently sent home; today he presented back to the hospital with a chief complaint of abnormal labs at the facility; patient noted to have acute kidney injury and elevated lithium levels. Patient denies any chest pain palpitations, lightheadedness dizziness, falls, change in speech, seizure-like activity. At the time of my entry patient mentating well and answering my questions appropriately. Patient reports that he has been on lithium for about a year. Patient denies any nausea vomiting or diarrhea review of all other systems is negative except mentioned above ER course: Per ER team patient's knee exam appears benign; x-ray showed no acute findings; patient noted to have SUMANTH and elevated lithium level. Discussed with Dr. Vo from Nephrology who recommended admission and IV hydration. Did not recommend any hemodialysis at this point. [facility] Medical History Bipolar 1 disorder Skin cancer of face Social History Household Members: None Housing: Other Housing Other:: [facility] Do you presently have visiting nurse or other home services: Yes Unable to assess alcohol history related to: Unknown Alcohol intake: never Patient Tobacco Use Status: Never used Tobacco service: No Current occupational status: disabled Meds Allergies Allergy/AdvReac Type Severity Reaction Status Date / Time No Known Allergies Allergy Unknown Unverified 11/03/19 15:08 Active Medications: Current Medications Generic Name Dose Route Start Last Admin Trade Name Freq PRN Reason Stop Dose Admin Sodium Chloride 1,000 mls @ 200 mls/hr 08/23/20 20:45 Ns IVCONT .Q5H HOSEA Sodium Chloride 250 mls @ 999 mls/hr 08/23/20 20:45 Ns IV 08/23/20 21:00 .Q16M HOSEA [place] Carbonate 450 mg 08/23/20 21:00 [place] Carbonate Er 450 Mg Tablet.Er PO BEDTIME HOSEA Melatonin 6 mg 08/23/20 20:42 Melatonin 3 Mg Tablet PO BEDTIME PRN Insomnia Multivitamins/Vitamin C 1 tab 08/24/20 09:00 Multivitamin Tablet PO DAILY [facility] Olanzapine 20 mg 08/23/20 21:00 Olanzapine 10 Mg Tablet PO BEDTIME [facility] Pharmacy Consult 1 each 08/23/20 19:57 Consult Rx Perform Med Rec MISCELLANE ONCE PRN Consult order Sodium Chloride 3 ml 08/24/20 00:00 0.9 % Sodium Chloride Flush 3 Ml Syringe IVFLUSH QSHIFT [facility] Home Medications Medication Instructions Recorded Confirmed Last Taken Type ascorbic acid (vitamin C) [Vitamin 500 mg PO DAILY 08/23/20 08/23/20 08/23/20 History C] aspirin 81 mg PO DAILY 08/23/20 08/23/20 08/23/20 History ferrous sulfate 325 mg PO DAILY 08/23/20 08/23/20 08/23/20 History multivitamin 1 tab PO DAILY 08/23/20 08/23/20 08/23/20 History olanzapine 1 tab PO BEDTIME 08/23/20 08/23/20 08/22/20 History Physical Exam Vital Signs and Narrative: Vital Signs: Last Vital Signs Temp 98.5 F 08/23/20 18:57 Pulse 64 08/23/20 20:00 Resp 13 08/23/20 20:00 BP 152/80 H 08/23/20 20:00 Pulse Ox 98 08/23/20 20:00 Body Mass Index 28.1 Gen: Appears be in no acute distress HEENT: NCAT, Moist mucosa. Pulmonary: Vesicular breath sounds, fair air entry CVS: Normal S1-S2 Abdomen: BS+, Soft, Nontender Extremities: Warm well perfused Neuro: Alert and awake. Results Labs CBC and Chem 7: 08/24/20 04:01 08/25/20 05:43 Labs: Laboratory Results - last 24 hr 08/23/20 08/23/20 08/23/20 16:30 16:30 16:30 MCV 94.3 MCH 31.4 MCHC 33.3 RDW 12.6 Plt Count 227 MPV 10.9 Immature Gran % (Auto) 0.5 H Neut % (Auto) 84.6 H Lymph % (Auto) 6.5 L [place] % (Auto) 6.8 Eos % (Auto) 1.2 Baso % (Auto) 0.4 Lymph # (Auto) 0.8 L [place] # (Auto) 0.8 Eos # (Auto) 0.2 Baso # (Auto) 0.1 Abs Immat Gran (auto) 0.06 H Absolute Neuts (auto) 10.2 H Absolute Nucleated RBC 0.000 Nucleated RBC % (auto) 0.0 PT 12.6 INR 1.1 APTT 34.2 Anion Gap 11 L Estim Creat Clear Calc 29.6 Estimated GFR 28 Random Glucose 97 Lactic Acid Calcium 10.0 Total Bilirubin 0.4 AST 39 H D ALT 48 H Alkaline Phosphatase 128 H Total Creatine Kinase Total Protein 7.3 Albumin 4.4 Lipase 62 Urine Color Urine Appearance Urine pH Ur Specific [place] Urine Protein Urine Glucose (UA) Urine Ketones Urine Blood Urine Nitrite Ur Leukocyte Esterase [place] COVID-19 (MARTHA) COVID-19 [facility] 08/23/20 08/23/20 08/23/20 16:30 16:30 16:30 MCV MCH MCHC RDW Plt Count MPV Immature Gran % (Auto) Neut % (Auto) Lymph % (Auto) [place] % (Auto) Eos % (Auto) Baso % (Auto) Lymph # (Auto) [place] # (Auto) Eos # (Auto) Baso # (Auto) Abs Immat Gran (auto) Absolute Neuts (auto) Absolute Nucleated RBC Nucleated RBC % (auto) PT INR APTT Anion Gap Estim Creat Clear Calc Estimated GFR Random Glucose Lactic Acid 0.6 Calcium Total Bilirubin AST ALT Alkaline Phosphatase Total Creatine Kinase 143 Total Protein Albumin Lipase Urine Color Urine Appearance Urine pH Ur Specific [place] Urine Protein Urine Glucose (UA) Urine Ketones Urine Blood Urine Nitrite Ur Leukocyte Esterase [place] 2.05 H* COVID-19 (MARTHA) COVID-19 [facility] 08/23/20 08/23/20 18:27 20:18 MCV MCH MCHC RDW Plt Count MPV Immature Gran % (Auto) Neut % (Auto) Lymph % (Auto) [place] % (Auto) Eos % (Auto) Baso % (Auto) Lymph # (Auto) [place] # (Auto) Eos # (Auto) Baso # (Auto) Abs Immat Gran (auto) Absolute Neuts (auto) Absolute Nucleated RBC Nucleated RBC % (auto) PT INR APTT Anion Gap Estim Creat Clear Calc Estimated GFR Random Glucose Lactic Acid Calcium Total Bilirubin AST ALT Alkaline Phosphatase Total Creatine Kinase Total Protein Albumin Lipase Urine Color YELLOW Urine Appearance CLEAR Urine pH 6.0 Ur Specific [place] 1.020 Urine Protein NEG Urine Glucose (UA) NEG Urine Ketones 5 Urine Blood NEG Urine Nitrite NEG Ur Leukocyte Esterase NEG [place] COVID-19 (MARTHA) Negative COVID-19 Clin Com See Note Assessment and Plan (1) Acute kidney injury: 75-year-old male with a past medical history of hypertension, bipolar disorder presented to the hospital with a chief complaint of right knee pain /abnormal labs. SUMANTH: IV hydration. Avoid nephrotoxins. Hold home lisinopril /hydrochlorothiazide. Elevated lithium level: Patient is currently asymptomatic. Mentating well. Held Home [place] Could be multifactorial in the setting of SUMANTH versus patient on lisinopril which can increase the lithium levels. Nephrology was notified- did not recommend any hemodialysis at the moment will continue IV hydration. Monitor for signs of fluid overload.( Patient denies any prior history of CHF) monitor lithium levels after the patient came up to the floors patient became tremulous spoke to the poison Control -recommended to monitor levels every 2 hours; continue aggressive IV hydration; Ativan p.r.n. for tremors. Sinus pause: after pt came to Floors; noted 3.8 sec pause; pt asymptomatic; placed bed side pacers; Cardiology consult. Hypertension: Patient's home medication lisinopril/hydrochlorothiazide has been had. Patient's blood pressure is slightly on the high side. Will start the patient on lopressor 12.5mg BID DVT prophylaxis: SCD boots Code status: Full code Quality Stroke Does the patient have a stroke diagnosis?: No VTE Prior VTE?: No VTE Risk Level:: Medical - low VTE Device Contraindication: N/A - Device Ordered VTE Drug Contraindication: Treatment Not Indicated
[2020-08-23] MEDS: 0.9 % Sodium Chloride 250 ML 999 ML IV (22:18)
[2020-08-23] MEDS: Metoprolol Tartrate 12.5 MG HALFTAB PO (22:18)
[2020-08-23] MEDS: 0.9 % Sodium Chloride 1,000 ML 200 ML IVCONT (22:18)
[2020-08-23] MEDS: OLANZapine 10 MG TABLET 20 MG PO (22:18)
--- NOTE | 2020-08-23 22:35 | PC.NURSE ---
Pt arrived on floor from ED in w/c. Alert and oriented x3, some confusion as we why he is truly here. He believes he is here for right knee pain, but is agreeable that his lithium levels are high. He believes the lithium toxicity is causing his knee pain. Educated regarding lithium toxicity and dehydration. Pt made high fall risk and put on seizure precautions due to elevated lithium levels. VSS. Using call rodriguez appropriately and understands need to use call rodriguez to amb around room. Ramon Oconnor RN from [facility] called for update on patient, went over medication list over the phone to confirm. RN had stated new onset of tremors, and fecal/urinary incontinence x1week. Pt has visible tremors at this moment, he states they are new within the last 3 days. Pt having a few episodes of loose stool uncontrolled. Commode placed at bedside. [place] held per MD. Will continue to reassess patient.
--- NOTE | 2020-08-23 23:43 | PC.NURSE ---
pt HR sustaining between 35-50 on monitor, rhythm is difficult to identify due to his tremors, but when it is a clear run it appears sinus. MD notified, instructed to monitor. Pacer pads placed by the bedside. Pt is asymptomatic, and talking to this RN, denies SOB, dizziness, or flushed feeling.
[2020-08-24] VITALS (8 sets, daily range): BP systolic 130–170; BP diastolic 62–84; PULSE 58–86; RESP 16–20; TEMP 36.1–36.7; O2SAT 96–99
--- NOTE | 2020-08-24 | ECG_ITS ---
Test Reason : sinus pause Blood Pressure : / mmHG Vent. Rate : 068 BPM Atrial Rate : 068 BPM P-R Int : 400 ms QRS Dur : 096 ms QT Int : 430 ms P-R-T Axes : 000 -01 160 degrees QTc Int : 457 ms Sinus rhythm with 1st degree A-V block Left ventricular hypertrophy with repolarization abnormality Abnormal ECG No significant changes when compared with the previous EKG of 23 august 2020 Referred By: Casey Macdonald Electronically Signed By:FANG LOYA
[2020-08-24] MEDS: LORazepam 0.5 MG TABLET PO (00:52)
--- NOTE | 2020-08-24 01:11 | PC.NURSE ---
Addendum entered by Breanne Otto RN 08/24/20 01:44: lithium level drawn at 0015 came back as 1.67. MD notified. no new orders at this time Original Note: Pt had a 3.09 sec pause at approx 2355, and a 3.84 second pause at 0008. MD notified. Stat EKG, lithium redraw q2 hours. pt experiencing mild confusion since coming up to floor. continues to be alert and oriented x3, but is very impulsive, and confused regarding short term things such as IV, telepack, needing to use call rodriguez. at the bedside at approx 0100 to assess patient. noted to have mild confusion. Will continue to reassess and watch closely.
[2020-08-24 01:44] LABS: Lithium 1.67 mmol/L (0.60-1.20)
[2020-08-24 04:08] LABS: MANUAL DIFF FLAG NO
[2020-08-24 04:09] LABS: Basophils Absolute Auto 0.1 X10*3/uL (0.0-0.2); Basophils Percent Auto 0.5 % (0-2); Eosinophils Absolute Auto 0.2 X10*3/uL (0.0-0.4); Eosinophils Percent Auto 1.5 % (0-4); Hematocrit 36.6 % (42-52); Hemoglobin 12.1 g/dl (14.0-18.0); Imm Gran Abs Auto 0.04 X10*3/uL (0.00-0.03); Imm Gran Pct Auto 0.4 % (0.0-0.4); Lymphocytes Absolute Auto 0.9 X10*3/uL (1.2-4.9); Lymphocytes Percent Auto 8.6 % (20-40); Mean Corpuscular HGB Conc 33.1 g/dl (31.0-36.0); Mean Corpuscular Hemoglobin 31.7 pg (27.0-33.0); Mean Corpuscular Volume 95.8 fL (80-98); Mean Platelet Volume 10.9 fL (9.4-12.4); Monocytes Absolute Auto 0.8 X10*3/uL (0.1-1.2); Monocytes Percent Auto 8.1 % (2-11); Neutrophils Absolute Auto 8.3 X10*3/uL (2.0-8.3); Neutrophils Percent Auto 80.9 % (45-73); Platelet Count 184 X10*3/uL (160-400); Red Blood Count 3.82 X10*6/uL (4.60-5.80); Red Cell Distribution Width 12.5 % (11.0-16.0); White Blood Count 10.3 X10*3/uL (4.8-10.8)
[2020-08-24] MEDS: 0.9 % Sodium Chloride 1,000 ML 200 ML IVCONT (04:16)
[2020-08-24 04:39] LABS: Anion Gap 10 (12-20); Blood Urea Nitrogen 40 mg/dL (9-16); Calcium 8.7 mg/dL (8.4-10.2); Carbon Dioxide 21 mmol/L (22-29); Chloride 114 mmol/L (96-108); Creatinine Clr Calc Pharmacy 41.4; Estimated Glomerular Filt Rate 41; Glucose Random 90 mg/dL (60-115); Potassium 3.9 mmol/L (3.3-5.1); Sodium 141 mmol/L (135-145)
[2020-08-24 04:49] LABS: Lithium 1.53 mmol/L (0.60-1.20)
[2020-08-24] MEDS: Metoprolol Tartrate 12.5 MG HALFTAB PO (08:43)
[2020-08-24] MEDS: Multivitamin TABLET 1 TAB PO (08:44)
--- NOTE | 2020-08-24 09:57 | PM.CNCAR ---
History of Present Illness History of Present Illness Date of Service: 08/24/20 Consult reason: other (pauses) Chief complaint: SUMANTH Narrative: This is a cardiology consultation regarding pauses on telemetry. Patient herself denies any specific cardiac symptoms P rate is actually quite sleepy and when able,, he seems quite confused. He denies any prior history of cardiac issues including coronary disease or myocardial infarction or cardiomyopathy. He was snoring when he was sleeping but denies any documented obstructive sleep apnea but he states that he sleeps on his sides. Telemetry had shown pauses which led to this consultation. He himself denies any angina or shortness of breath or in fact any cardiac symptoms whatsoever. Review of Systems Review of Systems: Yes all other systems are reviewed and are negative Cardiovascular: Cardiovascular: Reports as per HPI, Reports no additional cardiovascular complaints, Denies acrocyanosis, Denies cool extremities, Denies painful fingertips, Denies chest pain, Denies chest pain at rest, Denies diaphoresis, Denies syncope, Denies irregular heart rhythm, Denies claudication, Denies leg edema, Denies lightheadedness, Denies palpitations and Denies dyspnea Respiratory: Respiratory: Denies dyspnea Neurologic: Denies syncope Endocrine: Endocrine: Denies palpitations PMFSH Past Medical History Medical History Bipolar 1 disorder Skin cancer of face Family History Pertinent family history: No significant family history Social History Social History Household Members: None Housing: Other Housing Other:: [facility] Do you presently have visiting nurse or other home services: Yes Unable to assess alcohol history related to: Unknown Alcohol intake: never Patient Tobacco Use Status: Never used Tobacco Use of substances other than those prescribed or required for medical reasons: No Currently Displaying Signs/Symptoms of Drug Intoxication Withdrawal: No Have you been hit, kicked, punched, or otherwise hurt by someone within the past year? If so, by whom?: No Do you feel safe in your current relationship?: No Current Relationship Is there a partner from a previous relationship who is making you feel unsafe now?: No Are you made to feel afraid or neglected: No Advance Directives: No Advance Directives Information Provided: Yes Do you have thoughts of harming others: None Do you have a plan to hurt others: No Plan Recently lost weight without trying: No How much weight loss: Not applicable Eating poorly because of decreased appetite: No Nutrition screen score: 0 Nutrition Risks: No Nutritional Risk Poor oral hygiene: No Meds Allergies Allergy/AdvReac Type Severity Reaction Status Date / Time No Known Allergies Allergy Unknown Unverified 11/03/19 15:08 Active Medications: Current Medications Generic Name Dose Route Start Last Admin Trade Name Roseanne PRN Reason Stop Dose Admin Melatonin 6 mg 08/23/20 20:42 Melatonin 3 Mg Tablet PO BEDTIME PRN Insomnia Multivitamins/Vitamin C 1 tab 08/24/20 09:00 08/24/20 08:44 Multivitamin Tablet PO 1 tab DAILY HOSEA Administration Olanzapine 20 mg 08/23/20 21:00 08/23/20 22:18 Olanzapine 10 Mg Tablet PO 20 mg BEDTIME HOSEA Administration Pharmacy Consult 1 each 08/23/20 19:57 Consult Rx Perform Med Rec MISCELLANE ONCE PRN Consult order Sodium Chloride 3 ml 08/24/20 00:00 08/24/20 08:44 0.9 % Sodium Chloride Flush 3 Ml Syringe IVFLUSH Not Given QSHIFT [facility] Home Medications Medication Instructions Recorded Confirmed Last Taken Type ascorbic acid (vitamin C) [Vitamin 500 mg PO DAILY 08/23/20 08/23/20 08/23/20 History C] aspirin 81 mg PO DAILY 08/23/20 08/23/20 08/23/20 History ferrous sulfate 325 mg PO DAILY 08/23/20 08/23/20 08/23/20 History lisinopril-hydrochlorothiazide 1 tab PO DAILY 08/23/20 08/23/20 08/23/20 History lithium carbonate 1 cap PO BEDTIME 08/23/20 08/23/20 08/22/20 History lithium carbonate 1 tab PO BEDTIME 08/23/20 08/23/20 Unknown History multivitamin 1 tab PO DAILY 08/23/20 08/23/20 08/23/20 History olanzapine 1 tab PO BEDTIME 08/23/20 08/23/20 08/22/20 History Physical Exam Vital Signs: Vital Signs: Last Vital Signs Temp 98.0 F 08/24/20 07:06 Pulse 62 08/24/20 08:43 Resp 20 08/24/20 07:06 BP 141/74 H 08/24/20 08:43 Pulse Ox 98 08/24/20 07:06 Body Mass Index 28.1 Const: General: cooperative and no acute distress HENMT: Other: Unremarkable Neck: Neck: Yes normal visual inspection Chest: Chest palpation & inspection: normal inspection of the chest Resp: Auscultation: clear to auscultation bilaterally, no crackles and no wheezes Cardio: Jugular venous distension: no JVD Palpation: normal PMI Heart sounds: S1 normal heart sound present, S2 normal heart sound present, no gallops, no murmurs and no rubs GI: Palpation (GI): Soft to palpation Back/Spine/Pelvis: Other: unremarkable Skin: General skin exam: no rashes or lesions noted Neuro: Cranial nerves: Yes Other cranial nerve findings present Extrem: General: Yes no clubbing, cyanosis or edema Psych: Mental Status: other Results Labs and Meds Result diagrams: 08/24/20 04:01 08/24/20 04:01 Lab results: Laboratory Results - last 24 hr 08/23/20 08/23/20 08/23/20 16:30 16:30 16:30 WBC 12.1 H RBC 4.36 L Hgb 13.7 L Hct 41.1 L MCV 94.3 MCH 31.4 MCHC 33.3 RDW 12.6 Plt Count 227 MPV 10.9 Immature Gran % (Auto) 0.5 H Neut % (Auto) 84.6 H Lymph % (Auto) 6.5 L [place] % (Auto) 6.8 Eos % (Auto) 1.2 Baso % (Auto) 0.4 Lymph # (Auto) 0.8 L [place] # (Auto) 0.8 Eos # (Auto) 0.2 Baso # (Auto) 0.1 Abs Immat Gran (auto) 0.06 H Absolute Neuts (auto) 10.2 H Absolute Nucleated RBC 0.000 Nucleated RBC % (auto) 0.0 PT 12.6 INR 1.1 APTT 34.2 Sodium 138 Potassium 4.3 Chloride 107 Carbon Dioxide 24 Anion Gap 11 L BUN 53 H Creatinine 2.31 H Estim Creat Clear Calc 29.6 Estimated GFR 28 Random Glucose 97 Lactic Acid Calcium 10.0 Total Bilirubin 0.4 AST 39 H D ALT 48 H Alkaline Phosphatase 128 H Total Creatine Kinase Total Protein 7.3 Albumin 4.4 Lipase 62 Urine Color Urine Appearance Urine pH Ur Specific [place] Urine Protein Urine Glucose (UA) Urine Ketones Urine Blood Urine Nitrite Ur Leukocyte Esterase [place] COVID-19 (MARTHA) COVID-19 [employer] 08/23/20 08/23/20 08/23/20 16:30 16:30 16:30 WBC RBC Hgb Hct MCV MCH MCHC RDW Plt Count MPV Immature Gran % (Auto) Neut % (Auto) Lymph % (Auto) [place] % (Auto) Eos % (Auto) Baso % (Auto) Lymph # (Auto) [place] # (Auto) Eos # (Auto) Baso # (Auto) Abs Immat Gran (auto) Absolute Neuts (auto) Absolute Nucleated RBC Nucleated RBC % (auto) PT INR APTT Sodium Potassium Chloride Carbon Dioxide Anion Gap BUN Creatinine Estim Creat Clear Calc Estimated GFR Random Glucose Lactic Acid 0.6 Calcium Total Bilirubin AST ALT Alkaline Phosphatase Total Creatine Kinase 143 Total Protein Albumin Lipase Urine Color Urine Appearance Urine pH Ur Specific [place] Urine Protein Urine Glucose (UA) Urine Ketones Urine Blood Urine Nitrite Ur Leukocyte Esterase [place] 2.05 H* COVID-19 (MARTHA) [employer] 08/23/20 08/23/20 08/24/20 18:27 20:18 00:42 WBC RBC Hgb Hct MCV MCH MCHC RDW Plt Count MPV Immature Gran % (Auto) Neut % (Auto) Lymph % (Auto) [place] % (Auto) Eos % (Auto) Baso % (Auto) Lymph # (Auto) [place] # (Auto) Eos # (Auto) Baso # (Auto) Abs Immat Gran (auto) Absolute Neuts (auto) Absolute Nucleated RBC Nucleated RBC % (auto) PT INR APTT Sodium Potassium Chloride Carbon Dioxide Anion Gap BUN Creatinine Estim Creat Clear Calc Estimated GFR Random Glucose Lactic Acid Calcium Total Bilirubin AST ALT Alkaline Phosphatase Total Creatine Kinase Total Protein Albumin Lipase Urine Color YELLOW Urine Appearance CLEAR Urine pH 6.0 Ur Specific [place] 1.020 Urine Protein NEG Urine Glucose (UA) NEG Urine Ketones 5 Urine Blood NEG Urine Nitrite NEG Ur Leukocyte Esterase NEG [place] 1.67 H* COVID-19 (MARTHA) Negative [employer] See Note 08/24/20 08/24/20 08/24/20 04:01 04:01 04:01 WBC 10.3 RBC 3.82 L Hgb 12.1 L Hct 36.6 L MCV 95.8 MCH 31.7 MCHC 33.1 RDW 12.5 Plt Count 184 MPV 10.9 Immature Gran % (Auto) 0.4 Neut % (Auto) 80.9 H Lymph % (Auto) 8.6 L [place] % (Auto) 8.1 Eos % (Auto) 1.5 Baso % (Auto) 0.5 Lymph # (Auto) 0.9 L [place] # (Auto) 0.8 Eos # (Auto) 0.2 Baso # (Auto) 0.1 Abs Immat Gran (auto) 0.04 H Absolute Neuts (auto) 8.3 Absolute Nucleated RBC 0.000 Nucleated RBC % (auto) 0.0 PT INR APTT Sodium 141 Potassium 3.9 Chloride 114 H Carbon Dioxide 21 L Anion Gap 10 L BUN 40 H Creatinine 1.65 H Estim Creat Clear Calc 41.4 Estimated GFR 41 Random Glucose 90 Lactic Acid Calcium 8.7 D Total Bilirubin AST ALT Alkaline Phosphatase Total Creatine Kinase Total Protein Albumin Lipase Urine Color Urine Appearance Urine pH Ur Specific [place] Urine Protein Urine Glucose (UA) Urine Ketones Urine Blood Urine Nitrite Ur Leukocyte Esterase [place] 1.53 H* COVID-19 (MARTHA) COVID-19 [employer] 08/24/20 07:34 WBC RBC Hgb Hct MCV MCH MCHC RDW Plt Count MPV Immature Gran % (Auto) Neut % (Auto) Lymph % (Auto) [place] % (Auto) Eos % (Auto) Baso % (Auto) Lymph # (Auto) [place] # (Auto) Eos # (Auto) Baso # (Auto) Abs Immat Gran (auto) Absolute Neuts (auto) Absolute Nucleated RBC Nucleated RBC % (auto) PT INR APTT Sodium Potassium Chloride Carbon Dioxide Anion Gap BUN Creatinine Estim Creat Clear Calc Estimated GFR Random Glucose Lactic Acid Calcium Total Bilirubin AST ALT Alkaline Phosphatase Total Creatine Kinase Total Protein Albumin Lipase Urine Color Urine Appearance Urine pH Ur Specific [place] Urine Protein Urine Glucose (UA) Urine Ketones Urine Blood Urine Nitrite Ur Leukocyte Esterase [place] 1.40 H COVID-19 (MARTHA) COVID-19 [employer] ECG Attestation: I personally reviewed and interpreted this ECG as follows: Interpretation: EKG from yesterday shows sinus rhythm at 65/Min; marked NM prolongation and left ventricular hypertrophy with repolarization. Assessment and Plan (1) Sinus pause: Status: Acute (2) [place] toxicity: Qualifiers: Encounter type: initial encounter Injury intent: accidental or unintentional Qualified Code(s): T56.891A - Toxic effect of other metals, accidental (unintentional), initial encounter Status: Acute (3) Acute kidney injury: Status: Acute (4) First degree heart block: Status: Acute (5) Junctional rhythm: Status: Acute Telemetry reviewed. There are some pauses of 5.4 and 5.5 seconds overnight. [place] pauses also noted. Some areas of junctional rhythm. Baseline, he has long first-degree block. This could be from underlying conduction system disease made worse by undiagnosed/untreated obstructive sleep apnea and also lithium toxicity. Additionally, he had received some beta blockers. For now, no specific management. We can continue to monitor on telemetry and let the lithium levels come down. Will follow up with you. Procedures Date of Service Date of Service: 08/24/20
--- NOTE | 2020-08-24 09:59 | CA_ITS ---
Transthoracic Echocardiogram Patient (Last, First, Middle): Josh Goldstein, Gender: Male Date of : 1945 Age: 75 Procedure Date: 08/24/2020 Procedure Type: Transthoracic Echocardiogram [place] [facility] [place]: 172.72 cm Weight: 83.92 kg BSA: 1.98 m2 Heart Rate: bpm BP: 141 / 74 mmHg Track Broom Operator: DIMA Referring MD: Chuckie Ruiz MD Symptoms: Bradycardia, pauses Study Quality: Fair ECG Rhythm: Sinus Conclusions: - The left ventricular systolic function is normal. The visually estimated ejection fraction is between 55-60%. - No obvious valvular pathology seen on this study. Findings Left Ventricle Normal left ventricular cavity size. There is moderately increased left ventricular wall thickness. The left ventricular systolic function is normal. The visually estimated ejection fraction is between 55-60%. There is no evidence of regional wall motion abnormalities. Diastolic function is normal for age. Right Ventricle Normal right ventricular cavity size and systolic function. Atria Both atria are normal in size. Aortic Valve There is a normal trileaflet aortic valve. There is no aortic valve stenosis. Trace to mild aortic regurgitation. Mitral Valve The mitral valve appears normal. There is no mitral valve regurgitation. There is no mitral valve stenosis. Pulmonic Valve The pulmonic valve was not well visualized. Tricuspid Valve Normal tricuspid valve structure. There is trace tricuspid valve regurgitation. The pulmonary artery systolic pressure is normal. Great Vessels The aortic annulus, sinuses of valsalva, and asc aorta are normal in size. Venous The inferior vena cava is normal in size and collapses greater than 50% with inspiration. Pericardium/Pleural There is no evidence of pericardial effusion. Prior Study Comparison No significant change compared to prior study dated: 06/10/2006. Recommendations, Care & Conclusions No obvious valvular pathology seen on this study. Measurements 2D Linear Measurements IVSd: 1.39 0.6-0.9/0.6-1.0 cm LVIDd: 4.86 3.9-5.3/4.2-5.9 cm LVIDd Index: 2.45 2.4-3.2/2.2-3.1 cm/m2 LVIDs: 3.22 2.0-3.6 cm LVPWd: 1.17 0.7-1.1 cm Ao Root: 4.20 2.1-3.5 cm LA Diam: 4.00 2.7-3.8/3.0-4.0 cm LAIDs Index: 2.02 1.5-2.3 cm/m2 LV Mass: 305.48 67-162/88-224 g LV Mass Index: 154.28 43-95/49-115 g/m2 LVOT Diam: 2.30 3.0+(-)1.3 cm 2D Systolic Function EF 4C: 56.00 >55% EF 2C: 68.10 >55% EF BiP: 61.40 >55% Mitral Valve MV Pk E: 0.75 MV PK A: 0.59 MV Decel Time: 225.00 E/A: 1.30 E'Lateral: 12.80 E'Medial: 5.44 E/E' Med: 13.70 E/E' Lat: 5.80 PHT: 66.00 MVA PHT: 3.33 Decel [place]: 3.32 Aortic Valve AoV Pk [place]: 1.41 AoV Mn [place]: 0.95 AoV VTI: 0.30 AoV Pk Grad: 8.00 Aov Mn Grad: 4.00 LANIE Cont.VTI: 3.24 AI Pk [place]: 3.83 AI [place]: 1.24 LVOT LVOT Pk [place]: 1.15 LVOT Mn [place]: 0.73 LVOT VTI: 0.23 LVOT Pk Grad: 5.00 LVOT Mn Grad: 2.00 LVOT Diam: 2.30 LVOT Area: 4.15 Diastolic Function MV Pk E: 0.75 MV Pk A: 0.59 E/A: 1.30 E'Medial: 5.44 E/E' Med: 13.70 E' Laterial: 12.80 E/E' Lat: 5.80 Tricuspid Valve TR Pk [place]: 1.71 TR Pk Grad: 12.00 RA Press: 3.00 RVSP: 15.00 Great Vessels Aorta Ao Root-2D: 4.20 2.0-3.7 cm Ao Asc: 3.70 2.1-3.4 cm Ao Arch: 3.10 Updated in Other Vendor System with Status of Final Chuckie Ruiz MD electronically signed on 08/24/2020 2:42:41 PM with status of Final
--- NOTE | 2020-08-24 11:29 | HO.PM.IMPN ---
Subjective Subjective Date of Service: 08/24/20 Interval History: seen and examined this AM sleepy but easily awakens and answering appropriately reports R knee pain ROS General - no fevers or chills Cardiovascular - no chest pain Respiratory - no shortness of breath or cough Abdominal- no abdominal pain, nausea, vomiting, diarrhea Physical Exam Vital Signs: Vital Signs: Last Vital Signs Temp 97.2 F 08/24/20 11:14 Pulse 58 08/24/20 11:14 Resp 20 08/24/20 11:14 BP 130/70 08/24/20 11:14 Pulse Ox 98 08/24/20 11:14 Body Mass Index 28.1 Const: Other: General - no acute distress, appears comfortable Cardiovascular - regular rate and rhythm, S1-S2 Lungs - normal respiratory effort, clear to auscultation bilaterally, no wheezing Abdomen - soft, nontender, no rebound or guarding Extremities - R knee swelling without erythema, near full passive ROM, active ROM limited by pain Neuro - awake and alert, no focal deficits Objective Data Current Medications Generic Name Dose Route Start Last Admin Trade Name Roseanne PRN Reason Stop Dose Admin Acetaminophen 650 mg 08/24/20 11:28 Acetaminophen 325 Mg Tablet PO Q6H PRN PAINFEV Melatonin 6 mg 08/23/20 20:42 Melatonin 3 Mg Tablet PO BEDTIME PRN Insomnia Multivitamins/Vitamin C 1 tab 08/24/20 09:00 08/24/20 08:44 Multivitamin Tablet PO 1 tab DAILY HOSEA Administration Olanzapine 20 mg 08/23/20 21:00 08/23/20 22:18 Olanzapine 10 Mg Tablet PO 20 mg BEDTIME HOSEA Administration Pharmacy Consult 1 each 08/23/20 19:57 Consult Rx Perform Med Rec MISCELLANE ONCE PRN Consult order Sodium Chloride 3 ml 08/24/20 00:00 08/24/20 08:44 0.9 % Sodium Chloride Flush 3 Ml Syringe IVFLUSH Not Given QSHIFT [facility] Labs CBC & Chem 7: 08/24/20 04:01 08/24/20 04:01 Labs: Laboratory Results - last 24 hr 08/23/20 08/23/20 08/23/20 16:30 16:30 16:30 WBC 12.1 H RBC 4.36 L Hgb 13.7 L Hct 41.1 L MCV 94.3 MCH 31.4 MCHC 33.3 RDW 12.6 Plt Count 227 MPV 10.9 Immature Gran % (Auto) 0.5 H Neut % (Auto) 84.6 H Lymph % (Auto) 6.5 L [place] % (Auto) 6.8 Eos % (Auto) 1.2 Baso % (Auto) 0.4 Lymph # (Auto) 0.8 L [place] # (Auto) 0.8 Eos # (Auto) 0.2 Baso # (Auto) 0.1 Abs Immat Gran (auto) 0.06 H Absolute Neuts (auto) 10.2 H Absolute Nucleated RBC 0.000 Nucleated RBC % (auto) 0.0 PT 12.6 INR 1.1 APTT 34.2 Sodium 138 Potassium 4.3 Chloride 107 Carbon Dioxide 24 Anion Gap 11 L BUN 53 H Creatinine 2.31 H Estim Creat Clear Calc 29.6 Estimated GFR 28 Random Glucose 97 Lactic Acid Calcium 10.0 Total Bilirubin 0.4 AST 39 H D ALT 48 H Alkaline Phosphatase 128 H Total Creatine Kinase Total Protein 7.3 Albumin 4.4 Lipase 62 Urine Color Urine Appearance Urine pH Ur Specific [place] Urine Protein Urine Glucose (UA) Urine Ketones Urine Blood Urine Nitrite Ur Leukocyte Esterase [place] COVID-19 (MARTHA) COVID-19 [place] 08/23/20 08/23/20 08/23/20 16:30 16:30 16:30 WBC RBC Hgb Hct MCV MCH MCHC RDW Plt Count MPV Immature Gran % (Auto) Neut % (Auto) Lymph % (Auto) [place] % (Auto) Eos % (Auto) Baso % (Auto) Lymph # (Auto) [place] # (Auto) Eos # (Auto) Baso # (Auto) Abs Immat Gran (auto) Absolute Neuts (auto) Absolute Nucleated RBC Nucleated RBC % (auto) PT INR APTT Sodium Potassium Chloride Carbon Dioxide Anion Gap BUN Creatinine Estim Creat Clear Calc Estimated GFR Random Glucose Lactic Acid 0.6 Calcium Total Bilirubin AST ALT Alkaline Phosphatase Total Creatine Kinase 143 Total Protein Albumin Lipase Urine Color Urine Appearance Urine pH Ur Specific [place] Urine Protein Urine Glucose (UA) Urine Ketones Urine Blood Urine Nitrite Ur Leukocyte Esterase [place] 2.05 H* COVID-19 (MARTHA) COVID-19 [place] 08/23/20 08/23/20 08/24/20 18:27 20:18 00:42 WBC RBC Hgb Hct MCV MCH MCHC RDW Plt Count MPV Immature Gran % (Auto) Neut % (Auto) Lymph % (Auto) [place] % (Auto) Eos % (Auto) Baso % (Auto) Lymph # (Auto) [place] # (Auto) Eos # (Auto) Baso # (Auto) Abs Immat Gran (auto) Absolute Neuts (auto) Absolute Nucleated RBC Nucleated RBC % (auto) PT INR APTT Sodium Potassium Chloride Carbon Dioxide Anion Gap BUN Creatinine Estim Creat Clear Calc Estimated GFR Random Glucose Lactic Acid Calcium Total Bilirubin AST ALT Alkaline Phosphatase Total Creatine Kinase Total Protein Albumin Lipase Urine Color YELLOW Urine Appearance CLEAR Urine pH 6.0 Ur Specific [place] 1.020 Urine Protein NEG Urine Glucose (UA) NEG Urine Ketones 5 Urine Blood NEG Urine Nitrite NEG Ur Leukocyte Esterase NEG [place] 1.67 H* COVID-19 (MARTHA) Negative [employer] See Note 08/24/20 08/24/20 08/24/20 04:01 04:01 04:01 WBC 10.3 RBC 3.82 L Hgb 12.1 L Hct 36.6 L MCV 95.8 MCH 31.7 MCHC 33.1 RDW 12.5 Plt Count 184 MPV 10.9 Immature Gran % (Auto) 0.4 Neut % (Auto) 80.9 H Lymph % (Auto) 8.6 L [place] % (Auto) 8.1 Eos % (Auto) 1.5 Baso % (Auto) 0.5 Lymph # (Auto) 0.9 L [place] # (Auto) 0.8 Eos # (Auto) 0.2 Baso # (Auto) 0.1 Abs Immat Gran (auto) 0.04 H Absolute Neuts (auto) 8.3 Absolute Nucleated RBC 0.000 Nucleated RBC % (auto) 0.0 PT INR APTT Sodium 141 Potassium 3.9 Chloride 114 H Carbon Dioxide 21 L Anion Gap 10 L BUN 40 H Creatinine 1.65 H Estim Creat Clear Calc 41.4 Estimated GFR 41 Random Glucose 90 Lactic Acid Calcium 8.7 D Total Bilirubin AST ALT Alkaline Phosphatase Total Creatine Kinase Total Protein Albumin Lipase Urine Color Urine Appearance Urine pH Ur Specific [place] Urine Protein Urine Glucose (UA) Urine Ketones Urine Blood Urine Nitrite Ur Leukocyte Esterase [place] 1.53 H* COVID-19 (MARTHA) COVID-[employer] 08/24/20 07:34 WBC RBC Hgb Hct MCV MCH MCHC RDW Plt Count MPV Immature Gran % (Auto) Neut % (Auto) Lymph % (Auto) [place] % (Auto) Eos % (Auto) Baso % (Auto) Lymph # (Auto) [place] # (Auto) Eos # (Auto) Baso # (Auto) Abs Immat Gran (auto) Absolute Neuts (auto) Absolute Nucleated RBC Nucleated RBC % (auto) PT INR APTT Sodium Potassium Chloride Carbon Dioxide Anion Gap BUN Creatinine Estim Creat Clear Calc Estimated GFR Random Glucose Lactic Acid Calcium Total Bilirubin AST ALT Alkaline Phosphatase Total Creatine Kinase Total Protein Albumin Lipase Urine Color Urine Appearance Urine pH Ur Specific [place] Urine Protein Urine Glucose (UA) Urine Ketones Urine Blood Urine Nitrite Ur Leukocyte Esterase [place] 1.40 H COVID-19 (MARTHA) COVID-19 Clin Com Quality Stroke Does the patient have a stroke diagnosis?: No VTE Prior VTE?: No VTE Risk Level:: Medical - low VTE Device Contraindication: N/A - Device Ordered VTE Drug Contraindication: Treatment Not Indicated Assessment and Plan (1) [place] toxicity: Status: Acute (2) Acute kidney injury: Status: Acute (3) Bipolar 1 disorder: Status: Acute Assessment and Plan: This is a 75 yo M with a PMH history of Bipolar disorder on lithium who was called back to the ED for elevated lithium levels. Patient initially presented to [facility] ED on 08/21/2020 for complaints of R Knee pain. He underwent some basic work up which showed elevated Cr and elevated lithium levels. It appears that he may have eloped during that ED visit. He was called back to the ED and prsented there on 08/23. 1. ELevated lithium levels 2.05 at the time of admission, now 1.4 continue holding lithium and consult psych for mgmt 2. SUMANTH baseline unknonw, but SCr 2.31 upon admission and now down to 1.65 continue IVF, but change NS to LR 3. Sinus pauses multiple episodes with 2 > 5 secs over night cardiology consulted -- suspected secondary to undiagnosed / untreated YEHUDA. Will get pulm involved. 4. R Knee swelling / pain XR from few days ago without any fx will get ortho 5. Bipolar dx hold lithium continue other meds Full Code DVT pptx, subcut. heparin
[2020-08-24] MEDS: Lactated Ringers 1,000 ML 100 ML IVCONT ×2 (12:09→20:01)
[2020-08-24] MEDS: Heparin Sodium,Porcine 5,000 UNIT/ML VIAL 5000 UNIT SUBCUT ×2 (12:09→20:00)
[2020-08-24] MEDS: Acetaminophen 325 MG TABLET 650 MG PO ×2 (12:09→23:43)
--- NOTE | 2020-08-24 12:49 | P.CONPL_ITS ---
History of Present Illness History of Present Illness Consult date: 08/24/20 Chief complaint: SUMANTH Narrative: This is a pulmonary consultation. The patient is a 75-year-old gentleman with a known history of bipolar disorder on lithium was been complaining of musculoskeletal discomfort. Apparently patient had blood work done at a facility demonstrating evidence of acute kidney injury and lithium toxicity. He was brought to the [facility] ED where the patient was subsequently admitted to the hospital. During the evaluation the patient had a chest x-ray that was without any acute disease. He was admitted to the hospital and Cardiology was consulted. It was noted the patient has had some cardiac arrhythmias including cardiac pauses. These episodes happen during the nighttime. Therefore, the suspicion of sleep apnea was raised. On further questioning the patient denies any significant snoring. He denies anybody complaining about snoring. The patient does sleep sometimes a hard time sleeping. However, when he does sleep he is able to wake up refreshed. His [place] score is 8/24. Based on his cardiac issues and is very reasonable to perform a sleep study. At this point will have the patient follow up with us in outpatient since he will require an in-lab study. Otherwise the patient denies any other respiratory issues. Review of Systems Constitutional: Constitutional: Reports difficulty sleeping, Reports headache(s), Denies night sweats, Reports snoring and Denies stops breathing during sleep ENT: Denies change in voice, Reports headache(s), Denies lip swelling, Denies mouth pain, Reports nasal congestion, Reports nasal discharge and Denies tongue swelling Cardiovascular: Cardiovascular: Denies chest pain Respiratory: Respiratory: Denies cough and Reports snoring Gastrointestinal: Gastrointestinal: Denies abdominal pain Musculoskeletal: Musculoskeletal: Denies no additional musculoskeletal complaints Neurologic: Denies Neuro-related abnormal movements and Reports headache(s) Psychiatric: Psychiatric: Denies no additional psychiatric complaints Hematologic/Lymphatic: Hematologic/Lymphatic: Denies easy bleeding and Denies lymphadenopathy Allergic/Immunologic: Allergic/Immunologic: Denies lip swelling and Denies to ngue swelling PMFSH Past Medical History Medical History Bipolar 1 disorder Skin cancer of face Social History Social History Household Members: None Housing: Other Housing Other:: [facility] Do you presently have visiting nurse or other home services: Yes Unable to assess alcohol history related to: Unknown Alcohol intake: never Patient Tobacco Use Status: Never used Tobacco Use of substances other than those prescribed or required for medical reasons: No Currently Displaying Signs/Symptoms of Drug Intoxication Withdrawal: No Have you been hit, kicked, punched, or otherwise hurt by someone within the past year? If so, by whom?: No Do you feel safe in your current relationship?: No Current Relationship Is there a partner from a previous relationship who is making you feel unsafe now?: No Are you made to feel afraid or neglected: No Advance Directives: No Advance Directives Information Provided: Yes Do you have thoughts of harming others: None Do you have a plan to hurt others: No Plan Recently lost weight without trying: No How much weight loss: Not applicable Eating poorly because of decreased appetite: No Nutrition screen score: 0 Nutrition Risks: No Nutritional Risk Poor oral hygiene: No Meds Allergies Allergy/AdvReac Type Severity Reaction Status Date / Time No Known Allergies Allergy Unknown Unverified 11/03/19 15:08 Active Medications: Current Medications Generic Name Dose Route Start Last Admin Trade Name Freq PRN Reason Stop Dose Admin Acetaminophen 650 mg 08/24/20 11:28 08/24/20 12:09 Acetaminophen 325 Mg Tablet PO 650 mg Q6H PRN Administration PAINFEV Heparin Sodium (Porcine) 5,000 unit 08/24/20 11:45 08/24/20 12:09 Heparin Sodium,Porcine 5,000 Unit/Ml Vial SUBCUT 5,000 unit Q8H HOSEA Administration Lactated Ringer's 1,000 mls @ 100 mls/hr 08/24/20 11:45 08/24/20 12:09 Lr IVCONT 100 mls/hr .Q10H HOSEA Administration Melatonin 6 mg 08/23/20 20:42 Melatonin 3 Mg Tablet PO BEDTIME PRN Insomnia Multivitamins/Vitamin C 1 tab 08/24/20 09:00 08/24/20 08:44 Multivitamin Tablet PO 1 tab DAILY HOSEA Administration Olanzapine 20 mg 08/23/20 21:00 08/23/20 22:18 Olanzapine 10 Mg Tablet PO 20 mg BEDTIME HOSEA Administration Pharmacy Consult 1 each 08/23/20 19:57 Consult Rx Perform Med Rec MISCELLANE ONCE PRN Consult order Sodium Chloride 3 ml 08/24/20 00:00 08/24/20 08:44 0.9 % Sodium Chloride Flush 3 Ml Syringe IVFLUSH Not Given QSHIFT [facility] Home Medications Medication Instructions Recorded Confirmed Last Taken Type ascorbic acid (vitamin C) [Vitamin 500 mg PO DAILY 08/23/20 08/23/20 08/23/20 History C] aspirin 81 mg PO DAILY 08/23/20 08/23/20 08/23/20 History ferrous sulfate 325 mg PO DAILY 08/23/20 08/23/20 08/23/20 History lisinopril-hydrochlorothiazide 1 tab PO DAILY 08/23/20 08/23/20 08/23/20 History lithium carbonate 1 cap PO BEDTIME 08/23/20 08/23/20 08/22/20 History lithium carbonate 1 tab PO BEDTIME 08/23/20 08/23/20 Unknown History multivitamin 1 tab PO DAILY 08/23/20 08/23/20 08/23/20 History olanzapine 1 tab PO BEDTIME 08/23/20 08/23/20 08/22/20 History Physical Exam Vital Signs: Vital Signs: Last Vital Signs Temp 97.2 F 08/24/20 11:14 Pulse 58 08/24/20 11:14 Resp 20 08/24/20 11:14 BP 130/70 08/24/20 11:14 Pulse Ox 98 08/24/20 11:14 Body Mass Index 28.1 Const: General: alert Neck: Neck: Yes normal visual inspection, Yes full ROM and Yes no lymphadenopathy Chest: Chest palpation & inspection: normal inspection of the chest Resp: Auscultation: diminished lung sounds Cardio: Rate: regular rate Rhythm: regular rhythm Heart sounds: S1 normal heart sound present and S2 normal heart sound present GI: Palpation (GI): Soft to palpation and nontender Auscultation: normal bowel sounds Skin: General skin exam: rashes and/or lesions noted Results Laboratory Findings CBC and BMP: 08/24/20 04:01 08/24/20 04:01 ABG, PT/INR, D-dimer: PT/INR, D-dimer PT 12.6 SEC (9.9-13.0) 08/23/20 16:30 INR 1.1 (0.9-1.1) 08/23/20 16:30 Abnormal lab findings: Abnormal Labs 08/23/20 08/23/20 08/23/20 16:30 16:30 16:30 WBC 12.1 H RBC 4.36 L Hgb 13.7 L Hct 41.1 L Immature Gran % (Auto) 0.5 H Neut % (Auto) 84.6 H Lymph % (Auto) 6.5 L Lymph # (Auto) 0.8 L Abs Immat Gran (auto) 0.06 H Absolute Neuts (auto) 10.2 H Chloride Carbon Dioxide Anion Gap 11 L BUN 53 H Creatinine 2.31 H AST 39 H D ALT 48 H Alkaline Phosphatase 128 H [place] 2.05 H* 08/24/20 08/24/20 08/24/20 00:42 04:01 04:01 WBC RBC 3.82 L Hgb 12.1 L Hct 36.6 L Immature Gran % (Auto) Neut % (Auto) 80.9 H Lymph % (Auto) 8.6 L Lymph # (Auto) 0.9 L Abs Immat Gran (auto) 0.04 H Absolute Neuts (auto) Chloride 114 H Carbon Dioxide 21 L Anion Gap 10 L BUN 40 H Creatinine 1.65 H AST ALT Alkaline Phosphatase [place] 1.67 H* 08/24/20 08/24/20 04:01 07:34 WBC RBC Hgb Hct Immature Gran % (Auto) Neut % (Auto) Lymph % (Auto) Lymph # (Auto) Abs Immat Gran (auto) Absolute Neuts (auto) Chloride Carbon Dioxide Anion Gap BUN Creatinine AST ALT Alkaline Phosphatase [place] 1.53 H* 1.40 H Assessment and Plan (1) Sleep apnea: Qualifiers: Sleep apnea type: unspecified type Qualified Code(s): G47.30 - Sleep apnea, unspecified Status: Acute (2) Junctional rhythm: Status: Acute The patient may have a component of sleep apnea. At this point is unclear of his obstructive or central. He has evidence of cardiac arrhythmias. To better address this he will require an in-lab study. recommendations: - Continue current medical regimen - I will make arrangements for him to follow up as an outpatient in order to set up an in-lab sleep study. Currently the in-lab sleep study rooms are not available. - Consider overnight oximetry if he continues to be significantly symptomatic. Procedures Date of Service Date of Service: 08/24/20
[2020-08-24 13:52] LABS: Lithium 1.29 mmol/L (0.60-1.20)
[2020-08-24 13:57] LABS: Anion Gap 11 (12-20); Blood Urea Nitrogen 30 mg/dL (9-16); Calcium 8.6 mg/dL (8.4-10.2); Carbon Dioxide 16 mmol/L (22-29); Chloride 116 mmol/L (96-108); Creatinine Clr Calc Pharmacy 55.6; Estimated Glomerular Filt Rate 58; Glucose Random 178 mg/dL (60-115); Sodium 139 mmol/L (135-145)
[2020-08-24] MEDS: 0.9 % Sodium Chloride Flush 3 ML SYRINGE IVFLUSH ×2 (16:06→20:05)
--- NOTE | 2020-08-24 17:26 | PM.PSYCN ---
History of Present Illness Date of Service: 08/24/2020 Chief Complaint: SUMANTH Reason for Consult: lithium toxicity Requesting physician: Leonardo Kwan Discussed with referring provider: Yes Sources of Information: patient interviewed and chart reviewed [facility] Narrative: Patient is a 75-year-old male with a past medical history of hypertension, bipolar disorder on lithium therapy. He presented to the hospital with a chief complaint of right knee pain from respite care. Patient was treated in ED, however was asked to return due to SUMANTH and elevated lithium level. [place] was held, admitted, and has received IV hydration. Past Psychiatric History: Patient has a longstanding history of bipolar 1 disorder. Reports that he was inpatient level of care once, approximately 20 years ago. Denies any other inpatient stays, any [facility] programs. Patient currently has been staying at [facility] program, as per advice of psychiatrist/therapist. Medical Evaluation Reviewed: Yes Patient initially presented with elevated AST and ALT, elevated alkaline phosphatase. [place] level was 2.05. Nephrology has been consulted by primary team, hemodialysis had not been recommended at the moment. Cardiology has also been consulted. Personal & Social History: Patient appears alert and oriented x2, confused at times during the encounter. Reports that he does not live with family, had difficulty verbalizing exactly who he lives with. This is most likely due to lithium levels. Patient had been at [facility], was transported to hospital. Review of Systems Review of Systems Patient was alert and oriented x2, confused at times. Presented with bilateral tremor noted in hands. Patient had loose stools, frequent urination. Unsteady on feet. Constant gasket inspector present in room. Constitutional: Reports weakness (unsteady gait, weakness. ) Eyes: Reports as per HPI Reports Normal hearing present Cardiovascular: Reports as per HPI and Reports no additional cardiovascular complaints Respiratory: Reports no additional respiratory complaints Gastrointestinal: Reports change in bowel habits and Reports change in stool character (multiple loose stools, increased in frequency over past several days.) Genitourinary: Reports no additional male genitourinary complaints Musculoskeletal: Reports muscle weakness Reports Normal hearing present, Reports confusion (Confused at times, lucid at times. ), Reports tremor(s) (bilat tremor hands. ) and Reports weakness (unsteady gait, weakness. ) Psychiatric: Reports confusion (Confused at times, lucid at times. ) and Reports difficulty concentrating [facility] Medical History Bipolar 1 disorder Skin cancer of face Family History: Family history is unknown at this time. Patient was confused at times during encounter. Social History: Full social history is unknown at this time. Patient does report he has a longstanding diagnosis of bipolar 1 disorder, and has been treated for many years off and on with lithium. Patient also reports olanzapine has been used recently, approximately for the past year, perhaps longer. Substance History: Patient denies any type of substance use history. Trauma History: Unknown at this time, patient was confused at times during encounter. Diagnostics Vital Signs (24Hr): Vital Signs - 24 hr 08/23/20 17:58 08/23/20 18:00 08/23/20 18:57 Temperature 98.5 F Pulse Rate 68 64 66 Respiratory Rate 16 17 18 Blood Pressure 127/65 139/65 Pulse Oximetry 98 98 08/23/20 20:00 08/23/20 21:42 08/23/20 22:18 Temperature 98.6 F Pulse Rate 64 66 65 Respiratory Rate 13 18 Blood Pressure 152/80 H 143/77 H Pulse Oximetry 98 98 08/23/20 23:07 08/24/20 04:00 08/24/20 07:01 Temperature 97.2 F 98.1 F 97.2 F Pulse Rate 67 61 86 Respiratory Rate 18 18 16 Blood Pressure 145/71 H 146/71 H 131/84 Pulse Oximetry 98 99 96 08/24/20 07:06 08/24/20 08:43 08/24/20 11:14 Temperature 98.0 F 97.2 F Pulse Rate 62 62 58 Respiratory Rate 20 20 Blood Pressure 141/74 H 141/74 H 130/70 Pulse Oximetry 98 98 08/24/20 15:25 Temperature 96.9 F Pulse Rate 60 Respiratory Rate 20 Blood Pressure 144/73 H Pulse Oximetry 97 Body Mass Index 28.1 Labs Results: 08/24/20 04:01 08/24/20 13:27 Labs: Laboratory Results - last 48 hr 08/23/20 08/23/20 08/23/20 16:30 16:30 16:30 WBC 12.1 H RBC 4.36 L Hgb 13.7 L Hct 41.1 L MCV 94.3 MCH 31.4 MCHC 33.3 RDW 12.6 Plt Count 227 MPV 10.9 Immature Gran % (Auto) 0.5 H Neut % (Auto) 84.6 H Lymph % (Auto) 6.5 L [place] % (Auto) 6.8 Eos % (Auto) 1.2 Baso % (Auto) 0.4 Lymph # (Auto) 0.8 L [place] # (Auto) 0.8 Eos # (Auto) 0.2 Baso # (Auto) 0.1 Abs Immat Gran (auto) 0.06 H Absolute Neuts (auto) 10.2 H Absolute Nucleated RBC 0.000 Nucleated RBC % (auto) 0.0 PT 12.6 INR 1.1 APTT 34.2 Sodium 138 Potassium 4.3 Chloride 107 Carbon Dioxide 24 Anion Gap 11 L BUN 53 H Creatinine 2.31 H Estim Creat Clear Calc 29.6 Estimated GFR 28 Random Glucose 97 Lactic Acid Calcium 10.0 Total Bilirubin 0.4 AST 39 H D ALT 48 H Alkaline Phosphatase 128 H Total Creatine Kinase Total Protein 7.3 Albumin 4.4 Lipase 62 Urine Color Urine Appearance Urine pH Ur Specific [place] Urine Protein Urine Glucose (UA) Urine Ketones Urine Blood Urine Nitrite Ur Leukocyte Esterase [place] COVID-19 (MARTHA) [facility] 08/23/20 08/23/20 08/23/20 16:30 16:30 16:30 WBC RBC Hgb Hct MCV MCH MCHC RDW Plt Count MPV Immature Gran % (Auto) Neut % (Auto) Lymph % (Auto) [place] % (Auto) Eos % (Auto) Baso % (Auto) Lymph # (Auto) [place] # (Auto) Eos # (Auto) Baso # (Auto) Abs Immat Gran (auto) Absolute Neuts (auto) Absolute Nucleated RBC Nucleated RBC % (auto) PT INR APTT Sodium Potassium Chloride Carbon Dioxide Anion Gap BUN Creatinine Estim Creat Clear Calc Estimated GFR Random Glucose Lactic Acid 0.6 Calcium Total Bilirubin AST ALT Alkaline Phosphatase Total Creatine Kinase 143 Total Protein Albumin Lipase Urine Color Urine Appearance Urine pH Ur Specific [place] Urine Protein Urine Glucose (UA) Urine Ketones Urine Blood Urine Nitrite Ur Leukocyte Esterase [place] 2.05 H* COVID-19 (MARTHA) COVID-19 [facility] 08/23/20 08/23/20 08/24/20 18:27 20:18 00:42 WBC RBC Hgb Hct MCV MCH MCHC RDW Plt Count MPV Immature Gran % (Auto) Neut % (Auto) Lymph % (Auto) [place] % (Auto) Eos % (Auto) Baso % (Auto) Lymph # (Auto) [place] # (Auto) Eos # (Auto) Baso # (Auto) Abs Immat Gran (auto) Absolute Neuts (auto) Absolute Nucleated RBC Nucleated RBC % (auto) PT INR APTT Sodium Potassium Chloride Carbon Dioxide Anion Gap BUN Creatinine Estim Creat Clear Calc Estimated GFR Random Glucose Lactic Acid Calcium Total Bilirubin AST ALT Alkaline Phosphatase Total Creatine Kinase Total Protein Albumin Lipase Urine Color YELLOW Urine Appearance CLEAR Urine pH 6.0 Ur Specific [place] 1.020 Urine Protein NEG Urine Glucose (UA) NEG Urine Ketones 5 Urine Blood NEG Urine Nitrite NEG Ur Leukocyte Esterase NEG [place] 1.67 H* COVID-19 (MARTHA) Negative [facility] See Note 08/24/20 08/24/20 08/24/20 04:01 04:01 04:01 WBC 10.3 RBC 3.82 L Hgb 12.1 L Hct 36.6 L MCV 95.8 MCH 31.7 MCHC 33.1 RDW 12.5 Plt Count 184 MPV 10.9 Immature Gran % (Auto) 0.4 Neut % (Auto) 80.9 H Lymph % (Auto) 8.6 L [place] % (Auto) 8.1 Eos % (Auto) 1.5 Baso % (Auto) 0.5 Lymph # (Auto) 0.9 L [place] # (Auto) 0.8 Eos # (Auto) 0.2 Baso # (Auto) 0.1 Abs Immat Gran (auto) 0.04 H Absolute Neuts (auto) 8.3 Absolute Nucleated RBC 0.000 Nucleated RBC % (auto) 0.0 PT INR APTT Sodium 141 Potassium 3.9 Chloride 114 H Carbon Dioxide 21 L Anion Gap 10 L BUN 40 H Creatinine 1.65 H Estim Creat Clear Calc 41.4 Estimated GFR 41 Random Glucose 90 Lactic Acid Calcium 8.7 D Total Bilirubin AST ALT Alkaline Phosphatase Total Creatine Kinase Total Protein Albumin Lipase Urine Color Urine Appearance Urine pH Ur Specific [place] Urine Protein Urine Glucose (UA) Urine Ketones Urine Blood Urine Nitrite Ur Leukocyte Esterase [place] 1.53 H* COVID-19 (MARTHA) [facility] 08/24/20 08/24/20 08/24/20 07:34 13:27 13:27 WBC RBC Hgb Hct MCV MCH MCHC RDW Plt Count MPV Immature Gran % (Auto) Neut % (Auto) Lymph % (Auto) [place] % (Auto) Eos % (Auto) Baso % (Auto) Lymph # (Auto) [place] # (Auto) Eos # (Auto) Baso # (Auto) Abs Immat Gran (auto) Absolute Neuts (auto) Absolute Nucleated RBC Nucleated RBC % (auto) PT INR APTT Sodium 139 Potassium 4.0 Chloride 116 H Carbon Dioxide 16 L Anion Gap 11 L BUN 30 H Creatinine 1.23 Estim Creat Clear Calc 55.6 Estimated GFR 58 Random Glucose 178 H D Lactic Acid Calcium 8.6 Total Bilirubin AST ALT Alkaline Phosphatase Total Creatine Kinase Total Protein Albumin Lipase Urine Color Urine Appearance Urine pH Ur Specific [place] Urine Protein Urine Glucose (UA) Urine Ketones Urine Blood Urine Nitrite Ur Leukocyte Esterase [place] 1.40 H 1.29 H COVID-19 (MARTHA) COVID-19 Clin Com Mental Status Exam Mental Status Exam Patient Appearance: Well Grooomed, Fatigued and Appropriate Patient Orientation: Person and Place Level of Consciousness: Awake, Disoriented (disoriented to time, situation. states he is in hospital. ) and Lethargic (nodding off, but easily arousable and answers questions. ) Patient Behavior: Appropriate, Cooperative, Confused and Good Eye Contact Mood Description: Appropriate Affect Description: Appropriate Patient Cognition Impaired: Yes Ability to Follow Directions: Good Speech Pattern: Clear and Soft-Spoken Memory Description: Immediate Impaired (Unable to state exactly where he lives or who he lives with.), Episodic Impaired (Able to give is vague dates of treatment, however was unable to remember details. ) and Recent Impaired Hallucinations: None Delusions: Not Present Thought Process: Disoriented and Slowed Thinking Thought Content: positive for Disoriented Judgement: Poor Judgement and Insight: Patient appears confused, unable to state where he lives, with whom, name of psychiatrist, etc.. Medications Medications Current Medications Generic Name Dose Route Start Last Admin Trade Name Freq PRN Reason Stop Dose Admin Acetaminophen 650 mg 08/24/20 11:28 08/24/20 12:09 Acetaminophen 325 Mg Tablet PO 650 mg Q6H PRN Administration PAINFEV Heparin Sodium (Porcine) 5,000 unit 08/24/20 11:45 08/24/20 12:09 Heparin Sodium,Porcine 5,000 Unit/Ml Vial SUBCUT 5,000 unit Q8H HOSEA Administration Lactated Ringer's 1,000 mls @ 100 mls/hr 08/24/20 11:45 08/24/20 12:09 Lr IVCONT 100 mls/hr .Q10H HOSEA Administration Melatonin 6 mg 08/23/20 20:42 Melatonin 3 Mg Tablet PO BEDTIME PRN Insomnia Multivitamins/Vitamin C 1 tab 08/24/20 09:00 08/24/20 08:44 Multivitamin Tablet PO 1 tab DAILY HOSEA Administration Olanzapine 20 mg 08/23/20 21:00 08/23/20 22:18 Olanzapine 10 Mg Tablet PO 20 mg BEDTIME HOSEA Administration Pharmacy Consult 1 each 08/23/20 19:57 Consult Rx Perform Med Rec MISCELLANE ONCE PRN Consult order Sodium Chloride 3 ml 08/24/20 00:00 08/24/20 16:06 0.9 % Sodium Chloride Flush 3 Ml Syringe IVFLUSH 3 ml QSHIFT HOSEA Administration Allergies Allergies Allergy/AdvReac Type Severity Reaction Status Date / Time No Known Allergies Allergy Unknown Unverified 11/03/19 15:08 Assessment & Plan Assessment & Plan (1) [place] toxicity: Qualifiers: Encounter type: initial encounter Injury intent: accidental or unintentional Qualified Code(s): T56.891A - Toxic effect of other metals, accidental (unintentional), initial encounter Status: Acute Code(s): T56.891A - Toxic effect of other metals, accidental (unintentional), initial encounter Recommendations: Patient's lithium levels are trending downward, from 2.05 on 08/23, which was increased from 1.81 on 08/21. Doses today appear to be trending further downward, with 1.67, 1.53, 1.40, 1.29. Recommend continue holding lithium over the weekend. We will meet with him again on Thursday, to see if his confusion has cleared as lithium level decreases. At that point we can discuss other treatment options with patient. (2) Bipolar 1 disorder: Status: Acute Code(s): F31.9 - Bipolar disorder, unspecified Recommendations: Patient reports longstanding history of bipolar 1 disorder. States he was hospitalized in the past. To help prevent mood destabilization as the lithium level is decreasing, recommend continuing with scheduled olanzapine as ordered. I have shared my thoughts with Dr.Dhaval Kwan, via secure messaging. Thank you for this consultation. We will continue to follow this patient, and will see him after the weekend. Greater than 50% of the session was spent on counseling and/or coordination of care
--- NOTE | 2020-08-24 17:30 | PM.CNNEP ---
History of Present Illness Reason for Consult Consult date: 08/24/20 Reason for consult: SUMANTH and Li toxicity Chief Complaint Chief complaint: SUMANTH History of Present Illness Narrative: 75-year-old male with a past medical history of hypertension, bipolar disorder on lithium presented to the hospital with a chief complaint of right knee pain and noted SUMANTH and Li toxcity. Events since adm note with IVF Scr and Li level have been decreasing No tremors. Ques bsl functional/mental status but appears comfortable Answering my questions appropriately. Patient reports that he has been on lithium for about a year. Patient denies any nausea vomiting or diarrhea Review of Systems Review of Systems Yes all other systems are reviewed and are negative and Unobtainable due to mental status Constitutional: Reports difficulty sleeping, Reports headache(s), Denies night sweats, Reports snoring and Denies stops breathing during sleep Denies change in voice, Reports headache(s), Denies lip swelling, Denies mouth pain, Reports nasal congestion, Reports nasal discharge and Denies tongue swelling Cardiovascular: Reports as per HPI, Reports no additional cardiovascular complaints, Denies acrocyanosis, Denies cool extremities, Denies painful fingertips, Denies chest pain, Denies chest pain at rest, Denies diaphoresis, Denies syncope, Denies irregular heart rhythm, Denies claudication, Denies leg edema, Denies lightheadedness, Denies palpitations and Denies dyspnea Respiratory: Denies cough, Denies dyspnea and Reports snoring Gastrointestinal: Denies abdominal pain Musculoskeletal: Denies no additional musculoskeletal complaints Denies Neuro-related abnormal movements, Denies syncope and Reports headache(s) Psychiatric: Denies no additional psychiatric complaints Endocrine: Denies palpitations Hematologic/Lymphatic: Denies easy bleeding and Denies lymphadenopathy Allergic/Immunologic: Denies lip swelling and Denies tongue swelling PMFSH Past Medical History Medical History Bipolar 1 disorder Skin cancer of face Family History Pertinent family history: No significant family history Social History Social History Household Members: None Housing: Other Housing Other:: [facility] Do you presently have visiting nurse or other home services: Yes Unable to assess alcohol history related to: Unknown Alcohol intake: never Patient Tobacco Use Status: Never used Tobacco Use of substances other than those prescribed or required for medical reasons: No Currently Displaying Signs/Symptoms of Drug Intoxication Withdrawal: No Have you been hit, kicked, punched, or otherwise hurt by someone within the past year? If so, by whom?: No Do you feel safe in your current relationship?: No Current Relationship Is there a partner from a previous relationship who is making you feel unsafe now?: No Are you made to feel afraid or neglected: No Advance Directives: No Advance Directives Information Provided: Yes Do you have thoughts of harming others: None Do you have a plan to hurt others: No Plan Recently lost weight without trying: No How much weight loss: Not applicable Eating poorly because of decreased appetite: No Nutrition screen score: 0 Nutrition Risks: No Nutritional Risk Poor oral hygiene: No Meds Allergies Allergy/AdvReac Type Severity Reaction Status Date / Time No Known Allergies Allergy Unknown Unverified 11/03/19 15:08 Active Medications: Current Medications Generic Name Dose Route Start Last Admin Trade Name Freq PRN Reason Stop Dose Admin Acetaminophen 650 mg 08/24/20 11:28 08/24/20 12:09 Acetaminophen 325 Mg Tablet PO 650 mg Q6H PRN Administration PAINFEV Heparin Sodium (Porcine) 5,000 unit 08/24/20 11:45 08/24/20 12:09 Heparin Sodium,Porcine 5,000 Unit/Ml Vial SUBCUT 5,000 unit Q8H HOSEA Administration Lactated Ringer's 1,000 mls @ 100 mls/hr 08/24/20 11:45 08/24/20 12:09 Lr IVCONT 100 mls/hr .Q10H HOSEA Administration Melatonin 6 mg 08/23/20 20:42 Melatonin 3 Mg Tablet PO BEDTIME PRN Insomnia Multivitamins/Vitamin C 1 tab 08/24/20 09:00 08/24/20 08:44 Multivitamin Tablet PO 1 tab DAILY HOSEA Administration Olanzapine 20 mg 08/23/20 21:00 08/23/20 22:18 Olanzapine 10 Mg Tablet PO 20 mg BEDTIME HOSEA Administration Pharmacy Consult 1 each 08/23/20 19:57 Consult Rx Perform Med Rec MISCELLANE ONCE PRN Consult order Sodium Chloride 3 ml 08/24/20 00:00 08/24/20 16:06 0.9 % Sodium Chloride Flush 3 Ml Syringe IVFLUSH 3 ml QSHIFT HOSEA Administration Home Medications Medication Instructions Recorded Confirmed Last Taken Type ascorbic acid (vitamin C) [Vitamin 500 mg PO DAILY 08/23/20 08/23/20 08/23/20 History C] aspirin 81 mg PO DAILY 08/23/20 08/23/20 08/23/20 History ferrous sulfate 325 mg PO DAILY 08/23/20 08/23/20 08/23/20 History lisinopril-hydrochlorothiazide 1 tab PO DAILY 08/23/20 08/23/20 08/23/20 History lithium carbonate 1 cap PO BEDTIME 08/23/20 08/23/20 08/22/20 History lithium carbonate 1 tab PO BEDTIME 08/23/20 08/23/20 Unknown History multivitamin 1 tab PO DAILY 08/23/20 08/23/20 08/23/20 History olanzapine 1 tab PO BEDTIME 08/23/20 08/23/20 08/22/20 History Physical Exam Vital Signs: Last Vital Signs Temp 96.9 F 08/24/20 15:25 Pulse 60 08/24/20 15:25 Resp 20 08/24/20 15:25 BP 144/73 H 08/24/20 15:25 Pulse Ox 97 08/24/20 15:25 Body Mass Index 28.1 Const Other: General - no acute distress, appears comfortable Cardiovascular - regular rate and rhythm, S1-S2 Lungs - normal respiratory effort, clear to auscultation bilaterally, no wheezing Abdomen - soft, nontender, no rebound or guarding Extremities - R knee swelling without erythema, near full passive ROM, active ROM limited by pain Neuro - awake and alert, no focal deficits General: cooperative, healthy appearing, no acute distress and alert Orientation/consciousness: oriented to person and oriented to place Limitations: no limitations [facility] Other: Unremarkable Head: Yes normal to inspection, Yes normocephalic and Yes atraumatic Ears: external ears normal General nose exam: Normal external nose present Face and sinus: Yes normal facial exam Mouth: Normal oral and palatal mucosa present Throat: Yes posterior oropharynx normal Eyes Periorbital: periorbital findings normal Eyelids: Yes eyelids normal Conjunctivae: conjunctivae normal Sclerae: sclerae normal Corneas: corneas normal Pupils: Equal, round and reactive pupils present Direct Ophthalmoscopy: normal light reflex Neck Neck: Yes normal visual inspection, Yes full ROM, Yes no lymphadenopathy, Yes no meningeal signs, Yes trachea midline and Yes supple Chest Chest palpation & inspection: normal inspection of the chest and normal palpation of entire chest wall Resp Effort & Inspection: normal respiratory effort and able to speak in complete sentences Auscultation: clear to auscultation bilaterally, no crackles, no wheezes and diminished lung sounds Cardio Jugular venous distension: no JVD Palpation: normal PMI Rate: regular rate Rhythm: regular rhythm Heart sounds: S1 normal heart sound present, S2 normal heart sound present, no gallops, no murmurs and no rubs GI Inspection: Yes normal to inspection Palpation (GI): Soft to palpation, nontender, no guarding, not rigid and No hepatosplenomegaly present Auscultation: normal bowel sounds General: Yes no CVA tenderness Back/Spine/Pelvis Other: unremarkable Back: no CVA tenderness Cervical Spine: normal cervical lordosis Thoracic/Lumbar Spine: thoracic and lumbar spine normal to inspection Skin General skin exam: rashes and/or lesions noted Lesions: no lesions Rashes: no rashes Wounds: no wounds Neuro General: oriented to person, oriented to place and no meningeal signs Cranial nerves: Yes CN's II-XII intact bilaterally, Yes Equal, round and reactive pupils present and Yes Other cranial nerve findings present Cognition (Neuro): normal cognition Motor exam (neuro): 5/5 motor strength present throughout Extrem Other: The patient's right knee is slightly erythematous and warm to the touch compared to the left, there is no joint effusion, the patient has full range of motion. Compared to images from yesterday, the knee appears to be improved with less erythema, and less soft tissue swelling General: Yes full ROM and Yes no clubbing, cyanosis or edema Psych Appearance: well kempt Mental Status: mental status grossly normal and other Speech and movement: Normal speech and movement present Affect: normal affect Attitude: cooperative Thought process: Normal thought process present Thought content: Normal thought content present Results Lab Results Result Diagrams: 08/24/20 04:01 08/24/20 13:27 Lab results: Chemistry 08/23/20 08/24/20 08/24/20 16:30 04:01 13:27 Sodium 138 141 139 Potassium 4.3 3.9 4.0 Carbon Dioxide 24 21 L 16 L BUN 53 H 40 H 30 H Creatinine 2.31 H 1.65 H 1.23 Calcium 10.0 8.7 D 8.6 Hematology 08/23/20 08/24/20 16:30 04:01 WBC 12.1 H 10.3 Hgb 13.7 L 12.1 L Plt Count 227 184 Urinalysis 08/23/20 18:27 Urine Color YELLOW Urine Appearance CLEAR Urine pH 6.0 Ur Specific [place] 1.020 Urine Protein NEG Urine Glucose (UA) NEG Urine Ketones 5 Urine Blood NEG Urine Nitrite NEG Ur Leukocyte Esterase NEG Assessment and Plan (1) Sleep apnea: Qualifiers: Sleep apnea type: unspecified type Qualified Code(s): G47.30 - Sleep apnea, unspecified Status: Acute (2) Junctional rhythm: Status: Acute 1. SUMANTH: c/w dehydration with decr Scr on IVF 2. Li toxicty: Li level coming down and no need for emergent HD 3. NAGMA: ques d/t diarrhea REC: can dc IVF; Po NaHCO3; repeat renal labs and Li; ques need to r/s Li given propensity for Li tox given his current presentation will follow with team Procedures Date of Service Date of Service: 08/24/20
[2020-08-24] MEDS: OLANZapine 10 MG TABLET 20 MG PO (20:00)
[2020-08-24] MEDS: Melatonin 3 MG TABLET 6 MG PO (23:43)
[2020-08-25 03:33] VITALS: BP 156/66; PULSE 58; RESP 18; TEMP 36.4; O2SAT 95
[2020-08-25] MEDS: Heparin Sodium,Porcine 5,000 UNIT/ML VIAL 5000 UNIT SUBCUT ×3 (05:01→19:32)
[2020-08-25] MEDS: Lactated Ringers 1,000 ML 100 ML IVCONT (05:02)
[2020-08-25 07:04] LABS: Lithium 1.07 mmol/L (0.60-1.20)
[2020-08-25 07:44] LABS: Anion Gap 12 (12-20); Blood Urea Nitrogen 20 mg/dL (9-16); Calcium 9.2 mg/dL (8.4-10.2); Carbon Dioxide 20 mmol/L (22-29); Chloride 113 mmol/L (96-108); Creatinine Clr Calc Pharmacy 59.9; Estimated Glomerular Filt Rate > 60; Glucose Random 117 mg/dL (60-115); Potassium 4.1 mmol/L (3.3-5.1); Sodium 141 mmol/L (135-145)
[2020-08-25 07:54] VITALS: BP 154/80; PULSE 68; RESP 18; TEMP 36.6; O2SAT 97
[2020-08-25] MEDS: Multivitamin TABLET 1 TAB PO (08:16)
[2020-08-25] MEDS: 0.9 % Sodium Chloride Flush 3 ML SYRINGE IVFLUSH ×3 (08:17→19:34)
--- NOTE | 2020-08-25 09:07 | PM.EVENT ---
Event Note Date of Service: 08/28/20 Event Note: right knee pain x 4 days -denies trauma -he just finished walking 300 steps around the unit and states the knee feels better once he has been moving -denies fever or chills -would recommend PT for ROM-quad exercises -analgesics for pain -would consider steroid injection if pain persists
[2020-08-25 11:20] VITALS: BP 140/69; RESP 16; TEMP 36.9
--- NOTE | 2020-08-25 11:22 | PM.PNCARD ---
Subjective Subjective Date of Service: 08/25/20 Interval history: Feels well. No cardiac symptoms. Review of Systems Review of Systems Yes all other systems are reviewed and are negative Cardiovascular: Reports as per HPI, Reports no additional cardiovascular complaints, Denies acrocyanosis, Denies cool extremities, Denies painful fingertips, Denies chest pain, Denies chest pain at rest, Denies diaphoresis, Denies syncope, Denies irregular heart rhythm, Denies claudication, Denies leg edema, Denies lightheadedness, Denies palpitations and Denies dyspnea Respiratory: Denies dyspnea Denies syncope Endocrine: Denies palpitations Physical Exam Vital Signs: Last Vital Signs Temp 98 F 08/25/20 07:54 Pulse 68 08/25/20 07:54 Resp 18 08/25/20 07:54 BP 154/80 H 08/25/20 07:54 Pulse Ox 97 08/25/20 07:54 Body Mass Index 28.1 Const General: cooperative and no acute distress [facility] Other: Unremarkable Neck Neck: Yes normal visual inspection Chest Chest palpation & inspection: normal inspection of the chest Resp Auscultation: clear to auscultation bilaterally, no crackles and no wheezes Cardio Jugular venous distension: no JVD Palpation: normal PMI Heart sounds: S1 normal heart sound present, S2 normal heart sound present, no gallops, no murmurs and no rubs GI Palpation (GI): Soft to palpation Back/Spine/Pelvis Other: unremarkable Skin General skin exam: no rashes or lesions noted Neuro Cranial nerves: Yes Other cranial nerve findings present Extrem General: Yes no clubbing, cyanosis or edema Psych Mental Status: other Results Labs and Meds Result diagrams: 08/24/20 04:01 08/25/20 05:43 Lab results: Laboratory Results - last 24 hr 08/24/20 08/24/20 08/25/20 13:27 13:27 05:43 Sodium 139 141 Potassium 4.0 4.1 Chloride 116 H 113 H Carbon Dioxide 16 L 20 L Anion Gap 11 L 12 BUN 30 H 20 H Creatinine 1.23 1.14 Estim Creat Clear Calc 55.6 59.9 Estimated GFR 58 > 60 Random Glucose 178 H D 117 H Calcium 8.6 9.2 D [place] 1.29 H 08/25/20 05:43 Sodium Potassium Chloride Carbon Dioxide Anion Gap BUN Creatinine Estim Creat Clear Calc Estimated GFR Random Glucose Calcium [place] 1.07 Progress Note: A&P Assessment and plan (1) Sinus pause: Status: Acute (2) [place] toxicity: Status: Acute (3) Acute kidney injury: Status: Acute (4) First degree heart block: Status: Acute (5) Junctional rhythm: Status: Acute Assessment and Plan: Overnight, he has not had any further pauses. Prior to this, he had pauses of 5.4 and 5.5 seconds. This could be from underlying conduction system disease made worse by undiagnosed/untreated obstructive sleep apnea and also lithium toxicity/beta blockers. No specific management required and he does not need a pacemaker. Fall Risk Details Current Medications: Current Medications Generic Name Dose Route Start Last Admin Trade Name Freq PRN Reason Stop Dose Admin Acetaminophen 650 mg 08/24/20 11:28 08/24/20 23:43 Acetaminophen 325 Mg Tablet PO 650 mg Q6H PRN Administration PAINFEV Heparin Sodium (Porcine) 5,000 unit 08/24/20 11:45 08/25/20 05:01 Heparin Sodium,Porcine 5,000 Unit/Ml Vial SUBCUT 5,000 unit Q8H HOSEA Administration Melatonin 6 mg 08/23/20 20:42 08/24/20 23:43 Melatonin 3 Mg Tablet PO 6 mg BEDTIME PRN Administration Insomnia Multivitamins/Vitamin C 1 tab 08/24/20 09:00 08/25/20 08:16 Multivitamin Tablet PO 1 tab DAILY HOSEA Administration Olanzapine 20 mg 08/23/20 21:00 08/24/20 20:00 Olanzapine 10 Mg Tablet PO 20 mg BEDTIME HOSEA Administration Pharmacy Consult 1 each 08/23/20 19:57 Consult Rx Perform Med Rec MISCELLANE ONCE PRN Consult order Sodium Chloride 3 ml 08/24/20 00:00 08/25/20 08:17 0.9 % Sodium Chloride Flush 3 Ml Syringe IVFLUSH 3 ml QSHIFT HOSEA Administration Time Spent With Patient Time: Total time spent is greater than 50% in coordination of care (as documented) at patient's floor/unit and/or counseling patient: Time with patient: less than 15 minutes Progress Note: Quality Stroke Does the patient have a stroke diagnosis?: No Procedures Date of Service Date of Service: 08/25/20
[2020-08-25] MEDS: Acetaminophen 325 MG TABLET 650 MG PO ×3 (11:40→19:33)
--- NOTE | 2020-08-25 12:43 | PM.PNNEP ---
Subjective Subjective Date of Service: 08/25/20 Interval history: no acute events Cr coming down nicely Bicarb improved also Denies edema, dyspnea, and change in UOP. Physical Exam Vital Signs: Vital Signs: Last Vital Signs Temp 98.4 F 08/25/20 11:20 Pulse 68 08/25/20 07:54 Resp 16 08/25/20 11:20 BP 140/69 H 08/25/20 11:20 Pulse Ox 97 08/25/20 07:54 Body Mass Index 28.1 Const: Other: General - no acute distress, appears comfortable Cardiovascular - regular rate and rhythm, S1-S2 Lungs - normal respiratory effort, clear to auscultation bilaterally, no wheezing Abdomen - soft, nontender, no rebound or guarding Extremities - R knee swelling without erythema, near full passive ROM, active ROM limited by pain Neuro - awake and alert, no focal deficits General: cooperative, healthy appearing, no acute distress and alert Orientation/consciousness: oriented to person and oriented to place Limitations: no limitations HENMT: Other: Unremarkable Head: Yes normal to inspection, Yes normocephalic and Yes atraumatic Ears: external ears normal General nose exam: Normal external nose present Face and sinus: Yes normal facial exam Mouth: Normal oral and palatal mucosa present Throat: Yes posterior oropharynx normal Eyes: Periorbital: periorbital findings normal Eyelids: Yes eyelids normal Conjunctivae: conjunctivae normal Sclerae: sclerae normal Corneas: corneas normal Pupils: Equal, round and reactive pupils present Direct Ophthalmoscopy: normal light reflex Neck: Neck: Yes normal visual inspection, Yes full ROM, Yes no lymphadenopathy, Yes no meningeal signs, Yes trachea midline and Yes supple Chest: Chest palpation & inspection: normal inspection of the chest and normal palpation of entire chest wall Resp: Effort & Inspection: normal respiratory effort and able to speak in complete sentences Auscultation: clear to auscultation bilaterally, no crackles, no wheezes and diminished lung sounds Cardio: Jugular venous distension: no JVD Palpation: normal PMI Rate: regular rate Rhythm: regular rhythm Heart sounds: S1 normal heart sound present, S2 normal heart sound present, no gallops, no murmurs and no rubs GI: Inspection: Yes normal to inspection Palpation (GI): Soft to palpation, nontender, no guarding, not rigid and No hepatosplenomegaly present Auscultation: normal bowel sounds : General: Yes no CVA tenderness Back/Spine/Pelvis: Other: unremarkable Back: no CVA tenderness Cervical Spine: normal cervical lordosis Thoracic/Lumbar Spine: thoracic and lumbar spine normal to inspection Skin: General skin exam: rashes and/or lesions noted Lesions: no lesions Rashes: no rashes Wounds: no wounds Neuro: General: oriented to person, oriented to place and no meningeal signs Cranial nerves: Yes CN's II-XII intact bilaterally, Yes Equal, round and reactive pupils present and Yes Other cranial nerve findings present Cognition (Neuro): normal cognition Motor exam (neuro): 5/5 motor strength present throughout Objective Data Labs CBC & Chem 7: 08/24/20 04:01 08/25/20 05:43 Labs: Laboratory Results - last 24 hr 08/24/20 08/24/20 08/25/20 13:27 13:27 05:43 Sodium 139 141 Potassium 4.0 4.1 Chloride 116 H 113 H Carbon Dioxide 16 L 20 L Anion Gap 11 L 12 BUN 30 H 20 H Creatinine 1.23 1.14 Estim Creat Clear Calc 55.6 59.9 Estimated GFR 58 > 60 Random Glucose 178 H D 117 H Calcium 8.6 9.2 D [place] 1.29 H 08/25/20 05:43 Sodium Potassium Chloride Carbon Dioxide Anion Gap BUN Creatinine Estim Creat Clear Calc Estimated GFR Random Glucose Calcium [place] 1.07 Assessment & Plan Assessment and plan (1) Sleep apnea: Status: Acute (2) Junctional rhythm: Status: Acute Assessment and Plan: 1. SUMANTH: c/w dehydration with decr Scr on IVF. Possibly LIthium induced SUMANTH, well managed medically without HD. 2. Li toxicty: Li level coming down and no need for emergent HD 3. NAGMA: ques d/t diarrhea REC: - NO need for bicarb as acidosis resolving nicely - encourage PO intake - monitor labs daily. - may not benefit from lithium going forward. Time Spent With Patient Time: Total time spent is greater than 50% in coordination of care (as documented) at patient's floor/unit and/or counseling patient: Procedures Date of Service Date of Service: 08/25/20 Progress Note: Quality Stroke Does the patient have a stroke diagnosis?: No
--- NOTE | 2020-08-25 13:12 | P.PNIM_ITS ---
Subjective Subjective Date of Service: 08/25/20 Interval History: Patient more awake alert, is still not very clear in providing history, complaining of right knee discomfort but better since admission, denies fever, no chills. ROS General - no fevers ,no chills Cardiovascular - no chest pain, no palpitation Respiratory - no shortness of breath, no cough Abdominal- no abdominal pain, nausea, vomiting, or diarrhea Physical Exam Vital Signs: Vital Signs: Last Vital Signs Temp 98.4 F 08/25/20 11:20 Pulse 68 08/25/20 07:54 Resp 16 08/25/20 11:20 BP 140/69 H 08/25/20 11:20 Pulse Ox 97 08/25/20 07:54 Body Mass Index 28.1 General - no acute distress, appears comfortable Cardiovascular - regular rate and rhythm, S1-S2 Lungs - normal respiratory effort, clear to auscultation bilaterally, no wheezing Abdomen - soft, nontender, no rebound or guarding Extremities - R knee swelling without erythema, tenderness at medial joint over anserine bursa,active ROM limited by pain Neuro - awake and alert, no focal deficits Objective Data Current Medications Generic Name Dose Route Start Last Admin Trade Name Freq PRN Reason Stop Dose Admin Acetaminophen 650 mg 08/24/20 11:28 08/25/20 11:40 Acetaminophen 325 Mg Tablet PO 650 mg Q6H PRN Administration PAINFEV Heparin Sodium (Porcine) 5,000 unit 08/24/20 11:45 08/25/20 11:43 Heparin Sodium,Porcine 5,000 Unit/Ml Vial SUBCUT 5,000 unit Q8H HOSEA Administration Melatonin 6 mg 08/23/20 20:42 08/24/20 23:43 Melatonin 3 Mg Tablet PO 6 mg BEDTIME PRN Administration Insomnia Multivitamins/Vitamin C 1 tab 08/24/20 09:00 08/25/20 08:16 Multivitamin Tablet PO 1 tab DAILY HOSEA Administration Olanzapine 20 mg 08/23/20 21:00 08/24/20 20:00 Olanzapine 10 Mg Tablet PO 20 mg BEDTIME HOSEA Administration Pharmacy Consult 1 each 08/23/20 19:57 Consult Rx Perform Med Rec MISCELLANE ONCE PRN Consult order Sodium Chloride 3 ml 08/24/20 00:00 08/25/20 08:17 0.9 % Sodium Chloride Flush 3 Ml Syringe IVFLUSH 3 ml QSHIFT [facility] Administration Labs CBC & Chem 7: 08/24/20 04:01 08/25/20 05:43 Labs: Laboratory Results - last 24 hr 08/24/20 08/24/20 08/25/20 13:27 13:27 05:43 Sodium 139 141 Potassium 4.0 4.1 Chloride 116 H 113 H Carbon Dioxide 16 L 20 L Anion Gap 11 L 12 BUN 30 H 20 H Creatinine 1.23 1.14 Estim Creat Clear Calc 55.6 59.9 Estimated GFR 58 > 60 Random Glucose 178 H D 117 H Calcium 8.6 9.2 D [place] 1.29 H 08/25/20 05:43 Sodium Potassium Chloride Carbon Dioxide Anion Gap BUN Creatinine Estim Creat Clear Calc Estimated GFR Random Glucose Calcium [place] 1.07 Quality Stroke Does the patient have a stroke diagnosis?: No VTE Prior VTE?: No VTE Risk Level:: Medical - low VTE Device Contraindication: N/A - Device Ordered VTE Drug Contraindication: Treatment Not Indicated Assessment and Plan (1) Right knee pain: Status: Acute (2) Junctional rhythm: Status: Acute (3) First degree heart block: Status: Acute (4) Sinus pause: Status: Acute (5) [place] toxicity: Status: Acute (6) Acute kidney injury: Status: Acute (7) Bipolar 1 disorder: Status: Acute Assessment and Plan: 75 yo M with a PMH history of Bipolar disorder on lithium who was called back to the ED for elevated lithium levels. [place] [facility] [place] for complaints of R Knee pain. He underwent some basic work up which showed elevated Cr and elevated lithium levels. It appears that he may have eloped during that ED visit. He was called back to the ED and prsented there on 08/23. 1. ELevated lithium levels [place] level normalized from 2.05-1.07 this morning, patient seen by psych they recommend to hold lithium they will reassess patient on Thursday. Patient more awake alert but remains vague at times. 2. SUMANTH baseline unknonw, but SCr 2.31 upon admission and now normalized likely pre r enal, will DC IV fluid, lisinopril/hydrochlorothiazide on hold 3. Sinus pauses multiple episodes with 2 > 5 secs over night cardiology consulted -- suspected secondary to [place] or possibly undiagnosed / untreated YEHUDA. Patient seen by Dr. Linn from pulmonology he recommend outpatient sleep study 4. R Knee swelling / pain sees redness and swelling improving with less pain likely bursitis Will place ice Tylenol avoiding NSAIDs due to renal failure Follow clinical course 5. Bipolar dx hold lithium, no acute issues being followed by Psychiatry continue Zyprexa 6. Hypertension elevated blood pressure home medicine lisinopril/hydrochlorothiazide is on hold will place patient on Norvasc. Full Code DVT pptx, subcut. heparin
[2020-08-25 16:00] VITALS: BP 171/92; PULSE 68; RESP 16; TEMP 35.7; O2SAT 99
[2020-08-25 19:42] VITALS: BP 146/71; PULSE 61; RESP 16; TEMP 35.9; O2SAT 97
[2020-08-25] MEDS: Melatonin 3 MG TABLET 6 MG PO (21:33)
[2020-08-25 23:00] VITALS: BP 142/75; PULSE 67; RESP 18; TEMP 36.2; O2SAT 97
[2020-08-26] VITALS (7 sets, daily range): BP systolic 129–154; BP diastolic 73–89; PULSE 54–64; RESP 16–20; TEMP 36.2–37.3; O2SAT 96–98
[2020-08-26] MEDS: oxyCODONE HCl Immed Release 5 MG TABLET PO (01:16)
[2020-08-26] MEDS: Heparin Sodium,Porcine 5,000 UNIT/ML VIAL 5000 UNIT SUBCUT ×3 (03:13→19:31)
[2020-08-26] MEDS: Multivitamin TABLET 1 TAB PO (08:14)
[2020-08-26] MEDS: amLODIPine Besylate 5 MG TABLET PO (08:14)
[2020-08-26] MEDS: Acetaminophen 325 MG TABLET 650 MG PO ×3 (08:14→21:09)
[2020-08-26] MEDS: 0.9 % Sodium Chloride Flush 3 ML SYRINGE IVFLUSH ×3 (08:14→23:56)
--- NOTE | 2020-08-26 15:39 | HO.PM.IMPN ---
Subjective Subjective Date of Service: 08/26/20 Interval History: Patient more awake alert conversing well asking questions appropriately, still vague at times. Ambulating in hallway eating better. ROS General - no fevers ,no chills Cardiovascular - no chest pain, no palpitation Respiratory - no shortness of breath, no cough Abdominal- no abdominal pain, nausea, vomiting, or diarrhea Physical Exam Vital Signs: Vital Signs: Last Vital Signs Temp 97.2 F 08/26/20 12:00 Pulse 62 08/26/20 12:00 Resp 16 08/26/20 12:00 BP 151/89 H 08/26/20 12:00 Pulse Ox 97 08/26/20 12:00 Body Mass Index 28.1 General - no acute distress, appears comfortable Neck is supple,no jvd Cardiovascular - regular rate and rhythm, S1-S2 Lungs - normal respiratory effort, clear to auscultation bilaterally, no wheezing Abdomen - soft, nontender, no rebound or guarding Extremities - R knee swelling without erythema, decrease tenderness at medial joint over anserine bursa,active ROM limited by pain Neuro - awake and alert, no focal deficits Objective Data Current Medications Generic Name Dose Route Start Last Admin Trade Name Freq PRN Reason Stop Dose Admin Acetaminophen 650 mg 08/25/20 15:00 08/26/20 08:14 Acetaminophen 325 Mg Tablet PO 650 mg TID HOSEA Administration Amlodipine Besylate 5 mg 08/26/20 09:00 08/26/20 08:14 Amlodipine Besylate 5 Mg Tablet PO 5 mg DAILY HOSEA Administration Protocol Heparin Sodium (Porcine) 5,000 unit 08/24/20 11:45 08/26/20 12:21 Heparin Sodium,Porcine 5,000 Unit/Ml Vial SUBCUT 5,000 unit Q8H HOSEA Administration Melatonin 6 mg 08/23/20 20:42 08/25/20 21:33 Melatonin 3 Mg Tablet PO 6 mg BEDTIME PRN Administration Insomnia Multivitamins/Vitamin C 1 tab 08/24/20 09:00 08/26/20 08:14 Multivitamin Tablet PO 1 tab DAILY HOSEA Administration Olanzapine 20 mg 08/23/20 21:00 08/25/20 19:35 Olanzapine 10 Mg Tablet PO Not Given BEDTIME [facility] Pharm[facility] Consult 1 each 08/23/20 19:57 Consult Rx Perform Med Rec MISCELLANE ONCE PRN Consult order Sodium Chloride 3 ml 08/24/20 00:00 08/26/20 08:14 0.9 % Sodium Chloride Flush 3 Ml Syringe IVFLUSH 3 ml QSHIFT HOSEA Administration Labs CBC & Chem 7: 08/24/20 04:01 08/25/20 05:43 Quality Stroke Does the patient have a stroke diagnosis?: No VTE Prior VTE?: No VTE Risk Level:: Medical - low VTE Device Contraindication: N/A - Device Ordered VTE Drug Contraindication: Treatment Not Indicated Assessment and Plan (1) Right knee pain: Status: Acute (2) Sleep apnea: Status: Acute (3) Junctional rhythm: Status: Acute (4) First degree heart block: Status: Acute (5) Sinus pause: Status: Acute (6) Sherburn toxicity: Status: Acute (7) Acute kidney injury: Status: Acute (8) Bipolar 1 disorder: Status: Acute Assessment and Plan: 75 yo M with a PMH history of Bipolar disorder on lithium who was called back to the ED for elevated lithium levels. Patient initially presented to [facility] ED on 08/21/2020 for complaints of R Knee pain. He underwent some basic work up which showed elevated Cr and elevated lithium levels. It appears that he may have eloped during that ED visit. He was called back to the ED and prsented there on 08/23. 1. ELevated lithium levels Sherburn level normalized from 2.05-1.07 on 08/25, patient seen by psych they recommend to hold lithium they will reassess patient on Thursday. Patient more awake alert but remains vague at times. 2. SUMANTH SCr 2.31 upon admission and now normalized likely pre renal, will DC IV fluid, lisinopril/hydrochlorothiazide on hold 3. Sinus pauses multiple episodes with 2 > 5 secs over night cardiology consulted -- suspected secondary to Sherburn or possibly undiagnosed / untreated YEHUDA. Patient seen by Dr. Linn from pulmonology he recommend outpatient sleep study 4. R Knee swelling / pain, redness and swelling improved likely bursitis cont.prn ice,scheduled Tylenol,can use NSAIDs since renal function improved. Follow clinical course 5. Bipolar dx hold lithium, no acute issues being followed by Psychiatry continue Zyprexa, they will reassess patient at a.m. patient does not want to go back on lithium and want to establish psychiatric care in [place] 6. Hypertension few high blood pressure readings started on Norvasc 5 mg by mouth daily, home medicine lisinopril/hydrochlorothiazide discontinued since likely patient will need lithium. Full Code DVT pptx, subcut. heparin
[2020-08-26] MEDS: Melatonin 3 MG TABLET 6 MG PO (21:15)
[2020-08-27 00:01] VITALS: BP 153/84
[2020-08-27] MEDS: Heparin Sodium,Porcine 5,000 UNIT/ML VIAL 5000 UNIT SUBCUT ×2 (03:08→12:20)
[2020-08-27 03:09] VITALS: BP 148/79; PULSE 62; RESP 18; TEMP 36.4; O2SAT 97
--- NOTE | 2020-08-27 07:10 | PC.NURSE ---
7p-7a shift; Patient refused bedtime zyprexa [address] Macdonald notified via [email or web address]. Patient educated on medication.
[2020-08-27 07:37] VITALS: BP 160/87; PULSE 67; RESP 18; TEMP 36.3; O2SAT 98
[2020-08-27 08:31] VITALS: BP 160/87; PULSE 67
[2020-08-27] MEDS: Multivitamin TABLET 1 TAB PO (08:31)
[2020-08-27] MEDS: Acetaminophen 325 MG TABLET 650 MG PO (08:31)
[2020-08-27] MEDS: amLODIPine Besylate 5 MG TABLET PO (08:31)
[2020-08-27] MEDS: 0.9 % Sodium Chloride Flush 3 ML SYRINGE IVFLUSH (08:32)
--- NOTE | 2020-08-27 10:14 | PM.EVENT ---
Event Note Date of Service: 08/27/20 Event Note: This sql report writer met with patient this morning. He was able to report that it is Thursday morning, he is at [facility], and his full name. He did explain that due to a warrant, he was court ordered to treatment since last September or October. He states that he was sent to [facility] as a step-down. He states that he had had lithium toxicity years ago and was not taking the medication until his most recent hospitalization last fall. He no longer wishes to receive lithium. He has also refused his olanzapine 20 mg for the past several nights. He states that he does not wish to continue this medication and will continue to refuse it while he is here. Patient does display some confusion, as well as suspicion regarding the camera monitor in room. But overall, he was fully conversant, alert and oriented times 3-4. His lithium level has continued to trend downward, with most recent being 1.07. He denies any type of depression symptoms, did not display any manic behavior or thoughts. He denies any current auditory or visual hallucinations, paranoia, preoccupation with super natural, or odd speech. He denies any type of thoughts of harm to self or others, and denies any history of SI. Denies any symptoms of anxiety, PTSD. This sql report writer spoke with nurse Kaela at [facility]. She reports patient does have dementia as well as bipolar 1. She states that his primary care physician had recently changed his antihypertensive medications, approximately 1 month ago. She reports that he was court ordered to treatment last fall on a 16B. She states that he is currently residing in [facility]. They are holding a bed for him. She did report that she has already reached out to his primary care physician regarding his antihypertensive medications going forward. She states that although he currently does not have a Flores order in place, he will be required to continue taking the olanzapine while he is in their program, and they will address this with him when he returns. [facility] nurse did express that she be contacted at [phone] when patient is medically cleared for discharge. Their fax is [phone]. They are willing to accept him as soon as he is medically cleared. RECOMMENDATIONS: Psychiatrically, there are no further concerns regarding patient. There is no current Flores Order in place that we are aware of, and he wishes to refuse his medication, he has every right to do so at this time. As patient is not displaying any type of unsafe or manic symptoms, we will sign off on his care at this time. I have shared my thoughts and recommendations with Dr. Luisito Valladares, via electronic messaging. Thank you for allowing us to participate in this patient's care. If you have any further questions or concerns, please do not hesitate to contact us. I may be reached at extension [phone]. Annabella Juan, PMP-BC
--- NOTE | 2020-08-27 11:12 | MHC.CM.PN ---
LATE DOCUMENTATION CM MET WITH PT ON 08/24/20. PT REPORTED HE [facility] BUT WAS UNSURE IF HE COULD RETURN. PT REPORTED HE HAS NO HCP OR GUARDIAN AND STATED ITS JUST ME . PT DID GIVE CM PERMISSION TO CONTACT [facility] TO DETERMINE IF HE IS ABLE TO RETURN. CM CALLED [facility] AND WAS INFORMED THE PT IS A GROUP HOME RESIDENT WITH THEM SINCE BEING RELEASED FROM A SUPERVISOR [employer]ASSIS [employer] [facility] AT [facility]. [facility] NURSE WAS UNSURE WHICH AGENCY PT WAS INVOLVED WITH HOWEVER REPORTED IT WOULD LIKELY BE CHD OR DMH. PT IS LIKELY TO DC BACK TO [facility] TODAY. CM WILL CONTACT THEM TO COORDINATE PTS RETURN.
[2020-08-27 11:14] VITALS: BP 135/70; PULSE 59; RESP 18; TEMP 36.6; O2SAT 96
--- NOTE | 2020-08-27 12:57 | MHC.CM.PN ---
Addendum entered by Symone Hernandez 08/27/20 13:13: CELE SPOKE TO [facility] NURSE, VICTOR HUGO, WHO CONFIRMED THEY WOULD BE ABLE TO TAKE PT BACK TODAY. VICTOR HUGO THEN TRANSFERRED THE CALL TO ELENA WHO REPORTED SHE WOULD SET UP A TAXI TO [employer]PER[employer] PT AT 1430. NURSE INFORMED PT MUST BE OUT FRONT AT THAT TIME. Original Note: [facility] INFORMED [facility] OF PTS PENDING DC. CELE WAS INFORMED THEY WOULD NEED A NURSE TO NURSE COMPLETED AND THEN THAT NURSE WOULD COORDINATE THE DC. CELE PROVIDED THE PHONE NUMBER ([phone]) TO THE PTS [facility] NURSE WHO INDICATED SHE WOULD CALL THEM SOON FOR THE HAND OFF. ONCE HAND OFF IS COMPLETE, SHE WILL TRANSFER THE CALL TO FOR COORDINATION OF PTS TRANSFER.
--- NOTE | 2020-08-27 13:01 | PM.DS ---
DS: Providers Provider Date of Service: 08/27/20 Date of admission: 08/23/20 20:42 Primary care physician: Dagoberto Olivares MD Consults: 08/23/20 20:42 Consult to Nephrology Routine Consulting Provider: Antwan Delcid Reason for consultation: High Lacrosse level; SUMANTH 08/24/20 00:18 Consult to Cardiology Routine Consulting Provider: Chuckie Ruiz Reason for consultation: sinus pause 08/24/20 08:48 Consult to Psychiatry Routine Consulting Provider: [facility] Reason for consultation: history of bipolar, admitted with elevated lithium levels and SUMANTH 08/24/20 10:21 Consult to Pulmonology Routine Consulting Provider: Andrea Linn Reason for consultation: Likely has YEHUDA, noted to have sinus pauses >5 secs on tele, ? needs cpap 08/24/20 11:27 Consult to Orthopedics Routine Consulting Provider: Ike Montejo Reason for consultation: R knee swelling and pain DS: Diagnosis Discharge Diagnosis (1) Junctional rhythm: Status: Acute (2) Sinus pause: Status: Acute (3) Acute kidney injury: Status: Acute (4) Bipolar 1 disorder: Status: Acute (5) Essential hypertension: Status: Acute (6) Right knee pain: Status: Acute DS: Medications Discharge Medications Home Medications: Home Medications Medication Instructions Recorded Confirmed ascorbic acid (vitamin C) [Vitamin 500 mg PO DAILY 08/23/20 08/23/20 C] aspirin 81 mg PO DAILY 08/23/20 08/23/20 ferrous sulfate 325 mg PO DAILY 08/23/20 08/23/20 multivitamin 1 tab PO DAILY 08/23/20 08/23/20 olanzapine 1 tab PO BEDTIME 08/23/20 08/23/20 Previous Rx's Medication Instructions Recorded amlodipine 10 mg PO DAILY #30 tab 08/27/20 melatonin 6 mg PO BEDTIME PRN #60 tab 08/27/20 DS: Summary Hospital Course Hospital Course: from admission H+P by hospitalist Casey Macdonald, 08/23/20: 75-year-old male with a past medical history of hypertension, bipolar disorder on lithium presented to the hospital with a chief complaint of right knee pain. Patient mentioned that he presented to the hospital yesterday, had an x-ray with no acute findings, subsequently sent home; today he presented back to the hospital with a chief complaint of abnormal labs at the facility; patient noted to have acute kidney injury and elevated lithium levels. Patient denies any chest pain palpitations, lightheadedness dizziness, falls, change in speech, seizure-like activity. At the time of my entry patient mentating well and answering my questions appropriately. Patient reports that he has been on lithium for about a year. Patient denies any nausea vomiting or diarrhea review of all other systems is negative except mentioned above ER course: Per ER team patient's knee exam appears benign; x-ray showed no acute findings; patient noted to have SUMANTH and elevated lithium level. Discussed with Dr. Vo from Nephrology who recommended admission and IV hydration. Did not recommend any hemodialysis at this point. The patient was admitted to the [facility] after being called back to the ED for elevated lithium level and was noted to have acute kidney injury. Serum creatinine resolved after holding lisinopril/hydrochlorothiazide, stopping lithium, and giving IV hydration. He had no neurologic issues and lithium level normalized. Psychiatry was consulted and lithium will not be re-initiated. Per their consultation note: He was able to report that it is Thursday morning, he is at [facility], and his full name. He did explain that due to a warrant, he was court ordered to treatment since last September or October. He states that he was sent to [facility] as a step-down. He states that he had had lithium toxicity years ago and was not taking the medication until his most recent hospitalization last fall. He no longer wishes to receive lithium. He has also refused his olanzapine 20 mg for the past several nights. He states that he does not wish to continue this medication and will continue to refuse it while he is here. Patient does display some confusion, as well as suspicion regarding the camera monitor in room. But overall, he was fully conversant, alert and oriented times 3-4. His lithium level has continued to trend downward, with most recent being 1.07. He denies any type of depression symptoms, did not display any manic behavior or thoughts. He denies any current auditory or visual hallucinations, paranoia, preoccupation with super natural, or odd speech. He denies any type of thoughts of harm to self or others, and denies any history of SI. Denies any symptoms of anxiety, PTSD. This automatic typewriter inspector spoke with nurse Kaela at [facility]. She reports patient does have dementia as well as bipolar 1. She states that his primary care physician had recently changed his antihypertensive medications, approximately 1 month ago. She reports that he was court ordered to treatment last fall on a 16B. She states that he is currently residing in [facility]. They are holding a bed for him. She did report that she has already reached out to his primary care physician regarding his antihypertensive medications going forward. She states that although he currently does not have a Flores order in place, he will be required to continue taking the olanzapine while he is in their program, and they will address this with him when he returns. While on telemetry, he was noted to have multiple sinus pauses and junctional rhythms. Cardiology was consulted and the findings were attributed to either lithium toxicity or possible undiagnosed and untreated YEHUDA. Pulmonology was consulted and an outpatient sleep study will be arranged. He should follow up with the childcare provider after the sleep study is completed. After discharge, a repeat non-fasting basic metabolic panel should be done in approximately 1 week and the patient should follow up with the global marketing intern in 2 weeks. His antihypertensive regimen was switched to amlodipine 10 mg daily and he should follow up with his primary care physician in 1 week. Right knee pain and swelling improved with time, ice, and APAP; and ultimately was attributed to likely bursitis. Time Spent with Patient Time attestation: Total time spent providing and/or coordinating discharge services: 40 Discharge coordination time: Greater than 30 minutes Quality: Stroke Does the patient have a stroke diagnosis?: No Physical Exam Vital Signs: Vital Signs: Last Vital Signs Temp 97.8 F 08/27/20 11:14 Pulse 59 08/27/20 11:14 Resp 18 08/27/20 11:14 BP 135/70 08/27/20 11:14 Pulse Ox 96 08/27/20 11:14 Body Mass Index 28.1 Gen: in no acute distress HEENT: sclera anicteric, moist mucus membranes Neck: supple Lungs: clear to auscultation bilaterally Heart: regular rate and rhythm, no murmurs Abd: soft, non-tender, non-distended Ext: no edema Skin: warm/well-perfused Neuro: alert and oriented x3, no focal findings Psych: appropriate affect DS: Data Data Completed and Pending Completed studies during hospitalization [Text1]: Laboratory Results WBC 10.3 X10*3/uL (4.8-10.8) 08/24/20 04:01 RBC 3.82 X10*6/uL (4.60-5.80) L 08/24/20 04:01 Hgb 12.1 g/dl (14.0-18.0) L 08/24/20 04:01 Hct 36.6 % (42-52) L 08/24/20 04:01 MCV 95.8 fL (80-98) 08/24/20 04:01 MCH 31.7 pg (27.0-33.0) 08/24/20 04:01 MCHC 33.1 g/dl (31.0-36.0) 08/24/20 04:01 RDW 12.5 % (11.0-16.0) 08/24/20 04:01 Plt Count 184 X10*3/uL (160-400) 08/24/20 04:01 MPV 10.9 fL (9.4-12.4) 08/24/20 04:01 Immature Gran % (Auto) 0.4 % (0.0-0.4) 08/24/20 04:01 Neut % (Auto) 80.9 % (45-73) H 08/24/20 04:01 Lymph % (Auto) 8.6 % (20-40) L 08/24/20 04:01 Phillips % (Auto) 8.1 % (2-11) 08/24/20 04:01 Eos % (Auto) 1.5 % (0-4) 08/24/20 04:01 Baso % (Auto) 0.5 % (0-2) 08/24/20 04:01 Lymph # (Auto) 0.9 X10*3/uL (1.2-4.9) L 08/24/20 04:01 Phillips # (Auto) 0.8 X10*3/uL (0.1-1.2) 08/24/20 04:01 Eos # (Auto) 0.2 X10*3/uL (0.0-0.4) 08/24/20 04:01 Baso # (Auto) 0.1 X10*3/uL (0.0-0.2) 08/24/20 04:01 Abs Immat Gran (auto) 0.04 X10*3/uL (0.00-0.03) H 08/24/20 04:01 Absolute Neuts (auto) 8.3 X10*3/uL (2.0-8.3) 08/24/20 04:01 Absolute Nucleated RBC 0.000 X10*3/uL (0.0-0.012) 08/24/20 04:01 Nucleated RBC % (auto) 0.0 /100WBC (0.0-0.2) 08/24/20 04:01 PT 12.6 SEC (9.9-13.0) 08/23/20 16:30 INR 1.1 (0.9-1.1) 08/23/20 16:30 APTT 34.2 SEC (24.1-38.0) 08/23/20 16:30 Sodium 141 mmol/L (135-145) 08/25/20 05:43 Potassium 4.1 mmol/L (3.3-5.1) 08/25/20 05:43 Chloride 113 mmol/L (96-108) H 08/25/20 05:43 Carbon Dioxide 20 mmol/L (22-29) L 08/25/20 05:43 Anion Gap 12 (12-20) 08/25/20 05:43 BUN 20 mg/dL (9-16) H 08/25/20 05:43 Creatinine 1.14 mg/dL (0.5-1.4) 08/25/20 05:43 Estim Creat Clear Calc 59.9 08/25/20 05:43 Estimated GFR > 60 08/25/20 05:43 Random Glucose 117 mg/dL (60-115) H 08/25/20 05:43 Lactic Acid 0.6 mmol/L (0.5-2.0) 08/23/20 16:30 Calcium 9.2 mg/dL (8.4-10.2) D 08/25/20 05:43 Total Bilirubin 0.4 mg/dL (0.0-1.0) 08/23/20 16:30 AST 39 U/L (5-37) H D 08/23/20 16:30 ALT 48 U/L (0-40) H 08/23/20 16:30 Alkaline Phosphatase 128 U/L (39-117) H 08/23/20 16:30 Total Creatine Kinase 143 U/L (38-174) 08/23/20 16:30 Total Protein 7.3 g/dL (6.5-8.0) 08/23/20 16:30 Albumin 4.4 g/dL (3.5-5.0) 08/23/20 16:30 Lipase 62 U/L (8-78) 08/23/20 16:30 Urine Color YELLOW 08/23/20 18:27 Urine Appearance CLEAR 08/23/20 18:27 Urine pH 6.0 (5.0-8.0) 08/23/20 18:27 Ur Specific Marcella 1.020 (1.005-1.025) 08/23/20 18:27 Urine Protein NEG MG/DL (NEG-TRACE) 08/23/20 18:27 Urine Glucose (UA) NEG MG/DL (NEG) 08/23/20 18:27 Urine Ketones 5 MG/DL (NEG) 08/23/20 18:27 Urine Blood NEG (NEG) 08/23/20 18:27 Urine Nitrite NEG (NEG) 08/23/20 18:27 Ur Leukocyte Esterase NEG (NEG) 08/23/20 18:27 Lacrosse 1.07 mmol/L (0.60-1.20) 08/25/20 05:43 COVID-19 (MARTHA) Negative (Negative) 08/23/20 20:18 COVID-19 Clin Com See Note 08/23/20 20:18 Discharge Plan Discharge Anticipated Discharge Date/Time: 08/27/20 12:46 Patient Disposition: Xfer to Respite Facility Discharge Diagnosis: acute kidney injury, lithium toxicity, hypertension Referrals: Dagoberto Olivares MD [Primary Care Provider] - 1 Week Andrea Linn MD [Physician] - 1 Week Uli Keene MD [Physician] - 1 Week Physician,Unknown [Physician] - 1 Week Discharge Medications: New melatonin 3 mg Tablet 6 mg PO BEDTIME PRN (Reason: Insomnia) Qty: 60 RF: 0 amlodipine 5 mg Tablet 10 mg PO DAILY Qty: 30 RF: 0 Continued ascorbic acid (vitamin C) [Vitamin C] 500 mg Tablet 500 mg PO DAILY RF: 0 ferrous sulfate 325 mg (65 mg iron) Tablet 325 mg PO DAILY RF: 0 olanzapine 20 mg tablet 1 tab PO BEDTIME RF: 0 aspirin 81 mg Tablet,Delayed Release (Dr/Ec) 81 mg PO DAILY RF: 0 multivitamin Tablet 1 tab PO DAILY RF: 0 Discontinued lithium carbonate 150 mg capsule 1 cap PO BEDTIME RF: 0 lithium carbonate 450 mg tablet extended release 1 tab PO BEDTIME RF: 0 lisinopril-hydrochlorothiazide 20-25 mg tablet 1 tab PO DAILY RF: 0 Discharge Orders: Discharge Order (Routine); Ordered 08/27/20 Ordered By: Luisito Valladares Activity on Discharge: As tolerated Stand Alone Forms: Patient Portal Discharge page Other Ambulatory Orders: Basic Metabolic Panel (Routine) Timeframe: 1 Week Facility: [facility] - Location: Laboratory Ordered By: Luisito Valladares RT PSG in-lab sleep study (Routine) Location: None Selected Ordered By: Luisito Valladares Care Plan Goals: normal kidney function control of mood disorder control of blood pressure diagnosis of possible YEHUDA Health Concerns: acute kidney injury lithium toxicity hypertension possible YEHUDA Plan of Treatment: recheck labs in 1 week: basic metabolic panel (non-fasting) avoid lithium change lisinopril/HCTZ to AMLODIPINE 10 mg daily outpatient sleep study see your primary care doctor in 1 week see the global marketing intern [kidney specialist] in 2 weeks see the childcare provider [lung specialist] after your sleep study Assessment: as above Patient Instructions: Lacrosse Toxicity (DC)
--- NOTE | 2020-08-28 13:13 | PM.CNOR ---
History of Present Illness [facility] Consult date: 08/25/20 Chief complaint: SUMANTH Narrative: This is a 75-year-old gentleman who was admitted to the medical service for SUMANTH/ lithium toxicity. He also complained of right knee pain. While the emergency department he was experiencing some cellulitis. He was given IV dose of antibiotics. Prior to seeing the patient he was seen ambulating around the hallway of the 4th floor. No difficulty with moving the right knee. Review of Systems Review of Systems: Yes all other systems are reviewed and are negative [facility] Past Medical History Medical History Bipolar 1 disorder Skin cancer of face Social History Social History Household Members: None Housing: Other Housing Other:: [facility] Do you presently have visiting nurse or other home services: Yes Unable to assess alcohol history related to: Unknown Alcohol intake: never Patient Tobacco Use Status: Never used Tobacco service: No Current occupational status: disabled Meds Allergies Allergy/AdvReac Type Severity Reaction Status Date / Time No Known Allergies Allergy Unknown Unverified 11/03/19 15:08 Home Medications Medication Instructions Recorded Confirmed Last Taken Type ascorbic acid (vitamin C) [Vitamin 500 mg PO DAILY 08/23/20 08/23/20 08/23/20 History C] aspirin 81 mg PO DAILY 08/23/20 08/23/20 08/23/20 History ferrous sulfate 325 mg PO DAILY 08/23/20 08/23/20 08/23/20 History multivitamin 1 tab PO DAILY 08/23/20 08/23/20 08/23/20 History olanzapine 1 tab PO BEDTIME 08/23/20 08/23/20 08/22/20 History Physical Exam Vital Signs: Vital Signs: Last Vital Signs Temp 97.8 F 08/27/20 11:14 Pulse 59 08/27/20 11:14 Resp 18 08/27/20 11:14 BP 135/70 08/27/20 11:14 Pulse Ox 96 08/27/20 11:14 Body Mass Index 28.1 Const: General: cooperative, healthy appearing, comfortable and no acute distress Extrem: Other: Right knee skin intact. There is no swelling or erythema. He does have some tenderness along the root medial joint line. Range of motion full with crepitus. No ligamentous laxity. X-rays of the right knee are negative for any acute or chronic abnormalities. Results Labs Result Diagrams: 08/24/20 04:01 08/25/20 05:43 Labs: H & H 08/23/20 08/24/20 Range/Units 16:30 04:01 Hgb 13.7 L 12.1 L (14.0-18.0) g/dl Hct 41.1 L 36.6 L (42-52) % Coagulation 08/23/20 Range/Units 16:30 INR 1.1 (0.9-1.1) All other labs normal. Assessment and Plan (1) Right knee pain: Status: Acute She seems as though he may have some patellofemoral pain. I recommend some physical therapy to work on range of motion and quad strengthening. He can certainly see us on an outpatient basis if he would like to perform cortisone injections. Procedures Date of Service Date of Service: 08/25/20
== END 2020-08-27 15:30 | DRG 309 ==
LOC: HO.ED 18:09 → HO.EDOVER 20:54 → HO.IMC 21:03
PROVIDERS: Family Medicine; Admitting Provider Hospitalist; Emergency Provider Emergency Medicine Emergency Medical Services; PCP Internal Medicine; Visit Provider Family Medicine
DX: I49.5 Sick sinus syndrome (principal); N17.9 Acute kidney failure, unspecified; M25.561 Pain in right knee; I44.0 Atrioventricular block, first degree; F31.9 Bipolar disorder, unspecified; I10 Essential (primary) hypertension; G47.30 Sleep apnea, unspecified; T43.595A Adverse effect of other antipsychotics and neuroleptics, initial encounter; Y92.9 Unspecified place or not applicable; Z20.822 Contact with and (suspected) exposure to COVID-19; Z91.14 Patient's other noncompliance with medication regimen; Z79.82 Long term (current) use of aspirin; Z79.899 Other long term (current) drug therapy
CPT/HCPCS: 36415; 80048; 80053; 80178; 81003; 82550; 83605; 83690; 85025; 85610; 85730; 87635; 93005; 93306; 99285

== ENCOUNTER 2020-09-24 10:45 | Emergency (ER) | payer MEDICARE, OTHER, SELFPAY ==
--- NOTE | ~2020-09-24 | CT_ITS ---
EXAMINATION: CT ABDOMEN AND PELVIS WITH CONTRAST CLINICAL INFORMATION: Abdominal pain. Fullness. COMPARISON: None TECHNIQUE: Multidetector volumetric images were obtained from the superior aspect of the liver through the pubic symphysis following administration 85 mL of Omnipaque 350 intravenous contrast. Sagittal and coronal reformatted images were obtained on the technologist's workstation. Oral contrast: No This CT examination was performed using dose optimization techniques as appropriate, variously including the following: *Automated exposure control *Adjustment of mA and/or kV according to patient size (this includes techniques or standardized protocols for targeted exams where dose is matched to indication/reason for exam; i.e. extremities or head) *Use of iterative reconstruction technique DLP: 790 mGy-cm FINDINGS: LUNG BASES: Mild dependent atelectasis. LIVER, GALLBLADDER, AND BILIARY TREE: There are multiple small foci of hypoattenuation in hepatic parenchyma measuring up to 1.2 cm in diameter, measuring fluid attenuation, most consistent with simple cysts. No further follow-up imaging is necessary. No suspicious hepatic lesions. Liver is normal in size and contour. No biliary duct dilatation The gallbladder is unremarkable with no evidence of radiopaque gallstones, gallbladder wall thickening, or obvious pericholecystic inflammatory changes. PANCREAS: Unremarkable. SPLEEN: Unremarkable. ADRENAL GLANDS: Unremarkable. KIDNEYS AND URETERS: The kidneys are normal in size, shape, and attenuation. No hydronephrosis, hydroureter, or calculi seen. No perinephric stranding. Multiple fluid attenuation cystic foci are present in both kidneys, measuring up to 3.2 cm in diameter at the lower pole the right kidney and 2.3 cm diameter at the lower pole of the left kidney, most consistent with simple cysts. No follow-up imaging is necessary. BLADDER: Full. Normal wall thickness. No calculi. GASTROINTESTINAL TRACT AND ABDOMINAL WALL: Stomach, small bowel, and colon are normal in caliber. No bowel wall thickening. Mild colonic diverticulosis without evidence of acute diverticulitis. Multiple loops of small bowel herniates into a large right indirect inguinal hernia. No evidence of obstruction, though there is a small volume of fluid in this hernia, indicating a degree of irritation. There is a small direct fat-containing left inguinal hernia. Small fat-containing umbilical hernia. LYMPH NODES: Normal. VASCULAR: Atherosclerotic calcifications are present in the abdominal aorta. No aneurysmal dilatation. PELVIC VISCERA: The prostate and seminal vesicles are unremarkable. OSSEOUS STRUCTURES: Multilevel degenerative spondylosis is most notable at L2-L3. No acute fractures. Mild osteoarthritis in the hips. CT/CT abdomen pelvis w con IMPRESSION: 1. A large, in direct right inguinal hernia contains multiple loops of small bowel and a small amount of fluid. No evidence of obstruction, though the presence of fluid to suggest a degree of local irritation. No clear findings of strangulation. 2. Mild colonic diverticulosis without evidence of acute diverticulitis. 3. Multiple simple appearing hepatic and renal cysts. No pelvic imaging is recommended.
[2020-09-24 11:16] VITALS: BP 138/81; PULSE 76; RESP 17; TEMP 36.8; O2SAT 96; BMI 29.0
[2020-09-24 12:10] LABS: MANUAL DIFF FLAG NO
[2020-09-24 12:12] LABS: Basophils Absolute Auto 0.1 X10*3/uL (0.0-0.2); Eosinophils Absolute Auto 0.1 X10*3/uL (0.0-0.4); Eosinophils Percent Auto 0.8 % (0-4); Hemoglobin 15.4 g/dl (14.0-18.0); Imm Gran Abs Auto 0.03 X10*3/uL (0.00-0.03); Imm Gran Pct Auto 0.5 % (0.0-0.4); Lymphocytes Absolute Auto 1.3 X10*3/uL (1.2-4.9); Lymphocytes Percent Auto 20.9 % (20-40); Mean Corpuscular HGB Conc 33.5 g/dl (31.0-36.0); Mean Corpuscular Hemoglobin 30.7 pg (27.0-33.0); Mean Corpuscular Volume 91.8 fL (80-98); Mean Platelet Volume 9.7 fL (9.4-12.4); Monocytes Absolute Auto 0.6 X10*3/uL (0.1-1.2); Monocytes Percent Auto 9.4 % (2-11); Neutrophils Absolute Auto 4.2 X10*3/uL (2.0-8.3); Neutrophils Percent Auto 67.4 % (45-73); Platelet Count 227 X10*3/uL (160-400); Red Blood Count 5.01 X10*6/uL (4.60-5.80); Red Cell Distribution Width 12.6 % (11.0-16.0); White Blood Count 6.2 X10*3/uL (4.8-10.8)
[2020-09-24 12:40] LABS: Alanine Aminotransferase 18 U/L (0-40); Albumin Level 4.6 g/dL (3.5-5.0); Alkaline Phosphatase 99 U/L (39-117); Anion Gap 14 (12-20); Aspartate Amino Transferase 21 U/L (5-37); Bilirubin Total 0.3 mg/dL (0.0-1.0); Blood Urea Nitrogen 16 mg/dL (9-16); Calcium 9.8 mg/dL (8.4-10.2); Carbon Dioxide 23 mmol/L (22-29); Chloride 108 mmol/L (96-108); Creatinine Clr Calc Pharmacy 49.7; Estimated Glomerular Filt Rate 52; Glucose Random 93 mg/dL (60-115); Potassium 4.1 mmol/L (3.3-5.1); Sodium 141 mmol/L (135-145); Total Protein 7.3 g/dL (6.5-8.0)
--- NOTE | 2020-09-24 17:43 | ED.GENADULT ---
HPI - General Adult General Chief complaint: General Medical Stated complaint: ? bowel obstruction Time Seen by Provider: 09/24/20 17:41 History of Present Illness HPI narrative: PATIENT IS A 75-YEAR-OLD MALE WITH A LONG HISTORY OF HAVING A MASS IN HIS RIGHT GROIN AREA. Patient claims that he has decreased appetite. No nausea no vomiting. Feels a mass that is getting bigger in his left scrotum. Patient denies any fever chills. No cough no congestion. Positive bowel movement. The mass seems to get bigger with bowel movements. Patient denies any previous history of abdominal surgery. No history diabetes. Positive history of hypertension. Related Data Home Medications Medication Instructions Recorded Confirmed ascorbic acid (vitamin C) 500 mg 500 mg PO DAILY 08/23/20 08/23/20 tablet (Vitamin C) aspirin 81 mg tablet,delayed 81 mg PO DAILY 08/23/20 08/23/20 release ferrous sulfate 325 mg (65 mg 325 mg PO DAILY 08/23/20 08/23/20 iron) tablet multivitamin 1 tab PO DAILY 08/23/20 08/23/20 olanzapine 20 mg tablet 1 tab PO BEDTIME 08/23/20 08/23/20 Previous Rx's Medication Instructions Recorded amlodipine 5 mg tablet 10 mg PO DAILY #30 tab 08/27/20 melatonin 3 mg tablet 6 mg PO BEDTIME PRN #60 tab 08/27/20 Allergies Allergy/AdvReac Type Severity Reaction Status Date / Time No Known Allergies Allergy Unknown Unverified 11/03/19 15:08 Review of Systems Review of Systems: No nausea no vomiting no fever no chills no cough no congestion positive decreased appetite. [facility] Past Medical History Medical History Bipolar 1 disorder Skin cancer of face Social History Social History Household Members: None Housing: Other Housing Other:: [facility] Do you presently have visiting nurse or other home services: Yes Unable to assess alcohol history related to: Unknown Alcohol intake: never Patient Tobacco Use Status: Never used Tobacco Advance Directives: Yes Advance Directives Information Provided: Yes Advance Directives on File: No service: No Current occupational status: disabled Physical Exam Vital Signs: Vital Signs: Last Vital Signs Temp 98.4 F 09/24/20 18:34 Pulse 73 09/24/20 18:34 Resp 18 09/24/20 18:34 BP 144/90 H 09/24/20 18:34 Pulse Ox 95 09/24/20 18:34 Body Mass Index 29.0 Appearance: Alert. Oriented X3. No acute distress. Eyes: Pupils equal, round and reactive to light. ENT: Pharynx normal. Neck: Normal inspection. Neck supple. No lymph nodes noted. No crepitus CVS: Normal heart rate and rhythm. Pulses normal. Normal S1 and S2 Respiratory: No respiratory distress. Breath sounds normal. No Wheezing. No rales Abdomen: Soft and nontender. No rigidity. No distention. good BS x4. There is a large reducible mass in the right inguinal area. No pain to palpation. Skin: Skin warm and dry. Normal skin color. Normal skin turgor. Extremities: No lower extremity edema. Neurovascular intact to all extremities. No Lacerations. No Rash Neuro: Oriented X 3. No motor deficit. No sensory deficit. Moving all extermities. No slurred speech Medical Decision Making MDM Narrative Medical decision making narrative: Patient likely has a reducible inguinal hernia. Has been present for many years. Getting worse. Will require surgical intervention on an outpatient basis. However patient felt decrease in amount of p.o. intake. Will get CT scan of the abdomen. Will monitor carefully CT positive for indirect inguinal hernia. Patient has no signs of strangulation. Lactate was normal. Hernia is easily reducible. Will discharge patient home. No obstruction or abscess no perforation noted on CT. In stable condition will have patient be referred to General surgery. Lab Data Result diagrams: 09/24/20 12:06 09/24/20 12:06 Labs: Lab Results 09/24/20 09/24/20 09/24/20 Range/Units 12:06 12:06 18:50 WBC 6.2 (4.8-10.8) X10*3/uL RBC 5.01 D (4.60-5.80) X10*6/uL Hgb 15.4 D (14.0-18.0) g/dl Hct 46.0 D (42-52) % MCV 91.8 (80-98) fL MCH 30.7 (27.0-33.0) pg MCHC 33.5 (31.0-36.0) g/dl RDW 12.6 (11.0-16.0) % Plt Count 227 (160-400) X10*3/uL MPV 9.7 (9.4-12.4) fL Immature Gran % (Auto) 0.5 H (0.0-0.4) % Neut % (Auto) 67.4 (45-73) % Lymph % (Auto) 20.9 (20-40) % [place] % (Auto) 9.4 (2-11) % Eos % (Auto) 0.8 (0-4) % Baso % (Auto) 1.0 (0-2) % Lymph # (Auto) 1.3 (1.2-4.9) X10*3/uL [place] # (Auto) 0.6 (0.1-1.2) X10*3/uL Eos # (Auto) 0.1 (0.0-0.4) X10*3/uL Baso # (Auto) 0.1 (0.0-0.2) X10*3/uL Abs Immat Gran (auto) 0.03 (0.00-0.03) X10*3/uL Absolute Neuts (auto) 4.2 (2.0-8.3) X10*3/uL Absolute Nucleated RBC 0.000 (0.0-0.012) X10*3/uL Nucleated RBC % (auto) 0.0 (0.0-0.2) /100WBC Sodium 141 (135-145) mmol/L Potassium 4.1 (3.3-5.1) mmol/L Chloride 108 (96-108) mmol/L Carbon Dioxide 23 (22-29) mmol/L Anion Gap 14 (12-20) BUN 16 (9-16) mg/dL Creatinine 1.35 (0.5-1.4) mg/dL Estim Creat Clear Calc 49.7 Estimated GFR 52 Random Glucose 93 (60-115) mg/dL Lactic Acid 0.9 (0.5-2.0) mmol/L Calcium 9.8 D (8.4-10.2) mg/dL Total Bilirubin 0.3 (0.0-1.0) mg/dL AST 21 D (5-37) U/L ALT 18 (0-40) U/L Alkaline Phosphatase 99 D (39-117) U/L Total Protein 7.3 (6.5-8.0) g/dL Albumin 4.6 (3.5-5.0) g/dL Discharge Plan Discharge Clinical Impression: Hernia, inguinal Patient Disposition: Home, Self-Care Instructions: Inguinal Hernia (ED) Prescriptions: No Action ascorbic acid (vitamin C) [Vitamin C] 500 mg Tablet 500 mg PO DAILY RF: 0 ferrous sulfate 325 mg (65 mg iron) Tablet 325 mg PO DAILY RF: 0 olanzapine 20 mg tablet 1 tab PO BEDTIME RF: 0 aspirin 81 mg Tablet,Delayed Release (Dr/Ec) 81 mg PO DAILY RF: 0 multivitamin Tablet 1 tab PO DAILY RF: 0 melatonin 3 mg Tablet 6 mg PO BEDTIME PRN (Reason: Insomnia) Qty: 60 RF: 0 amlodipine 5 mg Tablet 10 mg PO DAILY Qty: 30 RF: 0 Referrals: Marlee Lam MD [Physician] - 2 days
[2020-09-24 18:34] VITALS: BP 144/90; PULSE 73; RESP 18; TEMP 36.9; O2SAT 95
[2020-09-24 19:15] LABS: Lactic Acid 0.9 mmol/L (0.5-2.0)
[2020-09-24] MEDS: iohexoL 350 MG/ML 100 ML INFUS..BTL IV (19:15)
== END 2020-09-24 21:10 | disposition home or self-care (01) ==
PROVIDERS: Emergency Provider Emergency Medicine Emergency Medical Services; PCP Internal Medicine
DX: K40.90 Unilateral inguinal hernia, without obstruction or gangrene, not specified as recurrent (principal); Z79.899 Other long term (current) drug therapy
CPT/HCPCS: 36415; 74177; 80053; 83605; 85025; 99284; Q9967

== ENCOUNTER → 2020-10-29 16:20 | Outpatient (BNVA) | payer MEDICARE, SELFPAY | PROVIDERS: PCP Internal Medicine; Visit Provider Surgery ==

== ENCOUNTER → 2020-11-21 09:49 | Outpatient (BNVA) | payer MEDICARE, SELFPAY | PROVIDERS: PCP Internal Medicine; Visit Provider Surgery | DX: K40.90 Unilateral inguinal hernia, without obstruction or gangrene, not specified as recurrent (principal) | CPT/HCPCS: 99202 ==

== ENCOUNTER 2020-11-27 09:49 | Day surgery (SDC) | payer MEDICARE, SELFPAY ==
--- NOTE | 2020-11-23 09:11 | P.CONAN_ITS ---
Documented by User: Mariza Montaño NP 11/23/20 09:21 HPI - Anesthesia Eval Consult details Narrative: 75yo M Right Hernia Repair Inguinal with Mesh 08/2020 [facility] admit with lithium toxicity. [place] level DOS PMFSH Active Problems Active Problems: All Active Problems (Updated 11/21/20 @ 10:13 by Ruy Rascon MD) Right inguinal hernia (Acute) Right knee pain (Acute) Essential hypertension (Acute) Skin cancer of face (Acute) Past Medical History Medical History (Updated 11/27/20 @ 11:12 by Deborah Reaves MD) Acute kidney injury Bipolar 1 disorder First degree heart block Junctional rhythm [place] toxicity Right inguinal hernia Right knee pain Sinus pause Skin cancer of face Sleep apnea Surgical History Surgical History History of tonsillectomy and adenoidectomy Social History Social History Household Members: None Housing: Other Housing Other:: [facility] Do you presently have visiting nurse or other home services: Yes Unable to assess alcohol history related to: Unknown Alcohol intake: never Patient Tobacco Use Status: Never used Tobacco Use of substances other than those prescribed or required for medical reasons: No Are you DNR?: No Advance Directives: No Advance Directives Information Provided: Yes service: No Current occupational status: disabled Meds Allergies Allergy/AdvReac Type Severity Reaction Status Date / Time No Known Allergies Allergy Unknown Verified 11/27/20 09:57 Home Medications Medication Instructions Recorded Confirmed Last Taken Type ascorbic acid (vitamin C) 500 mg 500 mg PO DAILY 08/23/20 11/21/20 11/27/20 08:30 History tablet (Vitamin C) aspirin 81 mg tablet,delayed 81 mg PO DAILY 08/23/20 11/21/20 11/26/20 09:00 History release ferrous sulfate 325 mg (65 mg 325 mg PO DAILY 08/23/20 11/21/20 11/27/20 08:30 History iron) tablet multivitamin 1 tab PO DAILY 08/23/20 11/21/20 11/27/20 08:30 History olanzapine 20 mg tablet 1 tab PO BEDTIME 08/23/20 11/21/20 08/22/20 History Exam Exam Date and Time: November 23, 2020 0911 Pertinent Lab Results Pertinent Lab Results: Laboratory Tests 09/24/20 09/24/20 12:06 12:06 WBC 6.2 Hgb 15.4 D Hct 46.0 D Plt Count 227 Sodium 141 Potassium 4.1 Chloride 108 Carbon Dioxide 23 BUN 16 Creatinine 1.35 Calcium 9.8 D Total Bilirubin 0.3 AST 21 D ALT 18 Alkaline Phosphatase 99 D Total Protein 7.3 Albumin 4.6 Narrative Narrative: Per cardiology eval while inpt: Overnight, he has not had any further pauses.? Prior to this, he had pauses of 5.4 and 5.5 seconds. This could be from underlying conduction system disease made worse by undiagnosed/untreated obstructive sleep apnea and also lithium toxicity/beta blockers.? No specific management required and he does not need a pacemaker. ECHO 08/2020 Conclusions: - The left ventricular systolic function is normal.? The visually estimated ejection fraction is between 55-60%. ? - No obvious valvular pathology seen on this study.? EKG 08/2020 Vent. Rate : 065 BPM ? ? Atrial Rate : 065 BPM ?? P-R Int : 316 ms? QRS Dur : 106 ms ? ? QT Int : 428 ms ? ? ? P-R-T Axes : 000 -02 161 degrees ?? QTc Int : 445 ms ? Sinus rhythm with 1st degree A-V block Left ventricular hypertrophy with repolarization abnormality Abnormal ECG When compared with ECG of 02-AUG-2012 13:42, T wave inversion less evident in Anterior leads Assessment and Plan Assessment Anesthesia Assessment: Chart Reviewed Documented by User: Deborah Reaves MD 11/27/20 11:15 PMFSH Active Problems Active Problems: All Active Problems (Updated 11/21/20 @ 10:13 by Ruy Rascon MD) Right inguinal hernia (Acute) Right knee pain (Acute) Essential hypertension (Acute) Skin cancer of face (Acute) Patient now off lithium. Blood level <0.1mmol/L LVH Past Medical History Medical History (Updated 11/27/20 @ 11:12 by Deborah Reaves MD) Acute kidney injury Bipolar 1 disorder First degree heart block Junctional rhythm [place] toxicity Right inguinal hernia Right knee pain Sinus pause Skin cancer of face Sleep apnea Family History Family history of problems with anesthesia: No Surgical History Surgical History History of tonsillectomy and adenoidectomy History of Problems with Anesthesia: No Social History Social History Household Members: None Housing: Other Housing Other:: [facility] Do you presently have visiting nurse or other home services: Yes Unable to assess alcohol history related to: Unknown Alcohol intake: never Patient Tobacco Use Status: Never used Tobacco Use of substances other than those prescribed or required for medical reasons: No Are you DNR?: No Advance Directives: No Advance Directives Information Provided: Yes service: No Current occupational status: disabled Meds Allergies Allergy/AdvReac Type Severity Reaction Status Date / Time No Known Allergies Allergy Unknown Verified 11/27/20 09:57 Home Medications Medication Instructions Recorded Confirmed Last Taken Type ascorbic acid (vitamin C) 500 mg 500 mg PO DAILY 08/23/20 11/21/20 11/27/20 08:30 History tablet (Vitamin C) aspirin 81 mg tablet,delayed 81 mg PO DAILY 08/23/20 11/21/20 11/26/20 09:00 History release ferrous sulfate 325 mg (65 mg 325 mg PO DAILY 08/23/20 11/21/20 11/27/20 08:30 History iron) tablet multivitamin 1 tab PO DAILY 08/23/20 11/21/20 11/27/20 08:30 History olanzapine 20 mg tablet 1 tab PO BEDTIME 08/23/20 11/21/20 08/22/20 History Exam Height,Weight and Vital Signs: Height 5 ft 7 in Weight 82.4 kg Vital Signs Temp Pulse Resp BP Pulse Ox 11/27/20 10:16 98.1 F 78 20 168/90 H 98 Pertinent Lab Results Pertinent Lab Results: Laboratory Tests 09/24/20 09/24/20 12:06 12:06 WBC 6.2 Hgb 15.4 D Hct 46.0 D Plt Count 227 Sodium 141 Potassium 4.1 Chloride 108 Carbon Dioxide 23 BUN 16 Creatinine 1.35 Calcium 9.8 D Total Bilirubin 0.3 AST 21 D ALT 18 Alkaline Phosphatase 99 D Total Protein 7.3 Albumin 4.6 Lab Results 11/27/20 Range/Units 10:04 [place] < 0.10 L (0.60-1.20) mmol/L Airway Mallampati Class: III (Hardly opens mouth. Denies TMJ issues) TM Dist: >3cm Neck ROM: Full Loose/Missing/Broken Teeth: No Heart: RRR Lungs: CTAB Assessment and Plan Assessment Anesthesia Assessment: Anesthesia Plan Discussed Final Anesthetic Review Family History of Problems with Anesthesia: No History of Problems with Anesthesia: No NPO: Yes ASA Class: III Final Preanesthetic Review: No Changes in Pt Med Stat, Meds/Allgs Chart Reviewed, Consent Obtained/Reviewed and Anes Risks/Benef Reviewed Patient Risk: Intermediate Procedure Risk: Low Assessment/Block/Sedation in SS: Assess/Block/Sedation-SS Anesthetic Plan Anesthetic Plan: GA Disposition: Standard PACU
[2020-11-23 14:22] VITALS: BMI 28.4
[2020-11-27] VITALS (10 sets, daily range): BP systolic 98–168; BP diastolic 55–90; PULSE 73–85; RESP 8–20; TEMP 36.2–37.3; O2SAT 93–98
[2020-11-27] MEDS: Lactated Ringers 1,000 ML 100 ML IVCONT (10:34)
[2020-11-27 10:40] LABS: Lithium < 0.10 mmol/L (0.60-1.20)
--- NOTE | 2020-11-27 11:49 | MHC.SHP ---
Pre-Procedural Eval Section A Date of Service: 11/27/20 Section B Chief Complaint: Right Inguinal hernia Allergies: Allergies Allergy/AdvReac Type Severity Reaction Status Date / Time No Known Allergies Allergy Unknown Verified 11/27/20 09:57 Plan I have reviewed the history and physical and performed a pertinent physical examination on my patient. No changes have occurred unless specified.
--- NOTE | 2020-11-27 13:22 | P.OP_ITS ---
Operative Note Operative Note Date of Service: 11/27/20 Narrative: Preop diagnosis: Right inguinal hernia Postop diagnosis: Right inguinal hernia, indirect Procedure: Repair of right inguinal hernia with mesh Surgeon: Ruy Rascon MD research study assistant: MARYLOU Henry The patient is a 75-year-old male with a large reducible mass in the right groin consistent with an inguinal hernia. He wanted to proceed with repair. He understood the technique of repair with mesh. He was aware of the risks, benefits, and alternatives. He was brought to the operating room and placed in supine position under a general anesthesia via laryngeal mask airway. The right groin was prepped and draped in the usual sterile fashion. A surgical time-out was done. The patient received cefazolin 2 g IV preoperatively. I infiltrated the planned line of incision with lidocaine 1%. I then made a short incision on the skin blade 15. This carried down through the full- thickness of the skin subcutaneous fat using electrocautery to expose the external oblique aponeurosis. The external ring was therefore dissected gently. I proceeded to then make an incision on the external oblique aponeurosis along its fibers using blade 15 and this incision was extended inferomedially to connect with the external ring using an open tipped pair of scissors. The edges of the external oblique aponeurosis was then grasped with hemostats. I proceeded to gently and bluntly dissected the underside of the aponeurosis to create space for the mesh. I was able to visualize a large hernia sac. I bluntly dissected this using my index finger and attempted to pass a Rahel drain around this including the cord contents. However, the sac was very adherent to the cord contents and there was a lot of fibrotic tissue surrounding this entire area so it was difficult to completely get around the cord along with the sac with my index finger. I therefore had to carefully define the large sac using sharp dissection with the right angle clamp to separate this gently from the rest of the cord. By doing so was able to carefully release most of the large sac off of the cord contents. This allowed me to carefully visualized and examined the spermatic cord and its contents. I was now able to identify the vas deferens and accompanying vessels. I was able to pass a Rahel drain around this and this was used for traction. With traction counter traction using the Rahel drain, as able to carefully separate the rest of the cord contents from the large sac all the way down to the level of the internal ring. I twisted the sac applied a clamp across this. This was transected above the clamp. I closed the stump with a suture ligature using Dexon 2-0. The hernia sac was sent as specimen. I was then able to fully inspect the cord contents. The vas deferens was clearly identified along with the accompanying vessels. The internal ring with a large hernia was seen. This was an indirect hernia. I used a large size Prolene plug to reinforce this internal ring. I secured the plug with Prolene 2 sutures to the shelving edge of the inguinal ligament and the internal oblique superiorly as well as medially using the inner leaves of the plug. I then reinforced the floor of the canal with a keyhole Prolene mesh. The tails of the mesh were passed around the cord at the level of the internal ring and secured together Prolene 2 sutures. I secured the mesh to the floor with Prolene 2 sutures to the shelving edge of the inguinal and laterally, the pubic ramus inferomedially and internal oblique superiorly and medially as well. We observed for hemostasis. Once hemostasis was ensured I proceeded to then irrigate and suction out the irrigant fluid. I closed the external oblique aponeurosis with a running Dexon 2-0 stitch to re-create the external ring The subcutaneous layer was reapposed with Dexon 3-0 interrupted sutures.. Skin closure was achieved with Dexon 4-0 subcuticular running stitch. The incision was infiltrated with Marcaine point part for sent for postop HEATH. Steri-Strips and dressings were applied. The procedure was then completed. The patient tolerated the procedure well. There were no complication noted. Initial and finalcounts of sponges and instruments were correct. Estimated blood loss was about 20 cc. The patient was extubated without difficulty and transferred to the recovery room with stable vital signs.
[2020-11-27] MEDS: oxyCODONE HCl Immed Release 5 MG TABLET PO (15:20)
[2020-11-27] MEDS: Acetaminophen 325 MG TABLET 650 MG PO (15:21)
== END 2020-11-27 15:57 | disposition home or self-care (01) ==
PROVIDERS: Nurse Practitioner; PCP Internal Medicine; Visit Provider Surgery
PROC: (CPT 49505; principal; 2020-11-27 11:10)
DX: K40.90 Unilateral inguinal hernia, without obstruction or gangrene, not specified as recurrent (principal); F31.9 Bipolar disorder, unspecified; I44.0 Atrioventricular block, first degree; Z79.82 Long term (current) use of aspirin; Z79.899 Other long term (current) drug therapy
CPT/HCPCS: 49505; 36415; 80178; 88302; 88304; C1781; J0690; J1100; J2250; J2405; J3010

== ENCOUNTER → 2020-12-10 09:54 | Outpatient (BNVA) | payer MEDICARE, SELFPAY | PROVIDERS: PCP Internal Medicine; Visit Provider Surgery | DX: Z48.815 Encounter for surgical aftercare following surgery on the digestive system (principal); Z87.19 Personal history of other diseases of the digestive system | CPT/HCPCS: 99212 ==